=== PATIENT | male | born 1935 | race Caucasian/White ===

== ENCOUNTER 2016-05-09 10:32 | Inpatient (IN) | payer MEDICARE, BC ==
[~2016-05-09 10:32] MED LIST: HUMAN PROTHROMBIN COMPLX 500 UNIT/16 ML VIAL IV ONE
[2016-05-09] MEDS: SODIUM CHLORIDE 0.9% 1,000 ML IV SCH ×2 (11:58→21:01)
[2016-05-09 12:14] LABS: Anisocytosis Slight; Basophils % (A) 0 %; CH 30.5; CHCM 32.8; Eosinophils # (A) 0.1 k/uL (0-0.7); Eosinophils % (A) 1 %; HDW 3.02; Luc % (Auto) 2; Lymphocytes # (A) 1.8 k/uL (1.0-4.8); Lymphocytes % (A) 16 %; MCV 93.9 fL (80.0-100.0); Mean Platelet Volume 6.9; Monocytes # (A) 0.5 k/uL (0-1.0); Monocytes % (A) 5 %; Neutrophils # (A) 8.2 k/uL (1.3-7.7); Neutrophils % (A) 76 %; RBC 2.06 m/uL (4.30-5.90); RDW 16.7 % (11.5-15.5); WBC 10.9 k/uL (3.8-10.6); WBC (Perox) 11.08
[2016-05-09 12:19] LABS: HGB 6.2 gm/dL (13.0-17.5)
[2016-05-09 12:20] LABS: HCT 19.4 % (39.0-53.0)
[2016-05-09] MEDS ORDERED: ACETAMINOPHEN TAB 325 MG TAB PO PRN (12:56)
[2016-05-09] MEDS ORDERED: NITROGLYCERIN SL TABS 0.4 MG TAB SUBLINGUAL PRN (12:56)
[2016-05-09] MEDS ORDERED: MORPHINE SULFATE 2 MG/ML SYRINGE IVP PRN (12:56)
--- NOTE | 2016-05-09 12:56 | ED ---
GI Bleed HPI - General Chief complaint: GI Bleed Stated complaint: WEAKNESS Time Seen by Provider: 05/09/16 10:36 Source: patient Mode of arrival: EMS Limitations: no limitations - History of Present Illness Initial comments: 81 years old gentleman was transferred to us from [facility] patient went there complaining about diarrhea for a few days and they also noticed some blood in the stool ER doc call me from [facility] stating that his hemoglobin is quite low 4.3 creatinine is 1.6 and he is on Coumadin for atrial fibrillation and his troponin is elevated so is the INR ( rectal exam or occult blood was positive. The patient himself denies any headaches no chest pain or shortness of breath no abdominal pain no sinus symptoms of TIA or CVA - Related Data Home Medications Medication Instructions Recorded Confirmed Aspirin [Adult Low Dose Aspirin EC] 81 mg PO DAILY 05/09/16 05/09/16 Ergocalciferol (Vitamin D2) 50,000 unit PO [place] 05/09/16 05/09/16 [Vitamin D2] Ferrous Sulfate [Feosol] 325 mg PO DAILY 05/09/16 05/09/16 Furosemide [Lasix] 40 mg PO DAILY 05/09/16 05/09/16 Insulin Detemir [Levemir Flextouch] 30 units SQ BID 05/09/16 05/09/16 Losartan [Cozaar] 50 mg PO DAILY 05/09/16 05/09/16 Multivitamin [Men's Multi-Vitamin] 1 tab PO DAILY 05/09/16 05/09/16 Potassium Chloride [Klor-Con 20] 20 meq PO DAILY 05/09/16 05/09/16 Potassium Gluconate 595 mg PO DAILY 05/09/16 05/09/16 Pravastatin Sodium [Pravachol] 40 mg PO HS 05/09/16 05/09/16 Warfarin [Coumadin] 5 mg PO DAILY 05/09/16 05/09/16 amLODIPine [Norvasc] 10 mg PO DAILY 05/09/16 05/09/16 sitaGLIPtin [Januvia] 50 mg PO DAILY 05/09/16 05/09/16 Allergies Allergy/AdvReac Type Severity Reaction Status Date / Time No Known Allergies Allergy Verified 05/09/16 12:16 Review of Systems ROS Statement: Those systems with pertinent positive or pertinent negative responses have been documented in the HPI. ROS Other: All systems not noted in ROS Statement are negative. Past Medical History Past Medical History: Diabetes Mellitus, Hyperlipidemia, Hypertension History of Any Multi-Drug Resistant Organisms: None Reported Past Surgical History: No Surgical Hx Reported Past Psychological History: No Psychological Hx Reported Smoking Status: Former smoker Past Alcohol Use History: None Reported Past Drug Use History: None Reported General Exam - General Exam Comments Initial Comments: General: The patient is awake and alert, in no distress, and does not appear acutely ill. ACS is 15 Skin: Skin is warm and dry and no rashes or lesions are noted. Eye: Pupils are equal, round and reactive to light, extra-ocular movements are intact; there is normal conjunctiva bilaterally. Ears, nose, mouth and throat: There are moist mucous membranes and no oral lesions. Neck: The neck is supple, there is no tenderness or JVD. Cardiovascular: There is a regular rate and rhythm. No murmur, rub or gallop is appreciated. Respiratory: To auscultation bilateral, no wheezing no rhonchi no distress respiratory dickerson noticed Gastrointestinal: Soft, non-distended, non-tender abdomen without masses or organomegaly noted. There is no rebound or guarding present. Bowel sounds are unremarkable. Back: There is no tenderness to palpation in the midline. There is no obvious deformity. Musculoskeletal: Normal ROM, no tenderness, There is no pedal edema. There is no calf tenderness or swelling. No cords were appreciated. Neurological: CN II-XII intact, Cranial nerves III through XII are intact. There are no obvious motor or sensory deficits. Coordination appears grossly intact. Speech is normal. Psychiatric: Cooperative, appropriate mood & affect, normal judgment. Limitations: no limitations Course Vital Signs 05/09/16 05/09/16 10:44 12:35 Temperature 99.3 F Pulse Rate 73 64 Respiratory 18 16 Rate Blood Pressure 141/66 138/72 O2 Sat by Pulse 98 97 Oximetry EKG in the ER was sinus rhythm with a first-degree AV block ventricular rate is 67 VT interval is 282 QRS duration is 94 QT/QTc is 400/422 review of this EKG did not show any atrial fibrillation the patient has a history of atrial fibrillation and no ST elevation or ST depression noticed either - Reevaluation(s) Reevaluation #1: 05/09/16 12:53 Labs were made reviewed his urinalysis is negative INR is 5.6 troponin I is supple and 120 creatinine is 1.6 hemoglobin is 5.[address] was normal unfortunately chest x-ray has not been uploaded yet and I didn't see the report with the paperwork and my have discussed that with the Dr. Bill white, hospitalist environmental consultant today he recommended that we give patient is sent from 35 units per kilogram discussed with the pharmacist environmental consultant and now she's can affix a 3500 units does of present trauma to reverse the INR Medical Decision Making - Lab Data Result diagrams: 05/09/16 12:03 Lab Results 05/09/16 Range/Units 12:03 WBC 10.9 H (3.8-10.6) k/uL RBC 2.06 L (4.30-5.90) m/uL Hgb 6.2 L* (13.0-17.5) gm/dL Hct 19.4 L* (39.0-53.0) % MCV 93.9 (80.0-100.0) fL MCH 30.0 (25.0-35.0) pg MCHC 32.0 (31.0-37.0) g/dL RDW 16.7 H (11.5-15.5) % Plt Count 266 (150-450) k/uL Neutrophils % 76 % Lymphocytes % 16 % Monocytes % 5 % Eosinophils % 1 % Basophils % 0 % Neutrophils # 8.2 H (1.3-7.7) k/uL Lymphocytes # 1.8 (1.0-4.8) k/uL Monocytes # 0.5 (0-1.0) k/uL Eosinophils # 0.1 (0-0.7) k/uL Basophils # 0.0 (0-0.2) k/uL Anisocytosis Slight Disposition Clinical Impression: GI bleed, Elevated INR, Elevated troponin Disposition: ADMITTED IP TO THIS HOSP Condition: Good
[2016-05-09] MEDS ORDERED: HUMAN PROTHROMBIN COMPLX IV ONE (13:00)
[2016-05-09] MEDS ORDERED: PHYTONADIONE 10 MG in SODIUM CHLORIDE 0.9% 50 ML IVPB STA (13:01)
[2016-05-09] MEDS ORDERED: ERGOCALCIFEROL 50,000 UNIT CAP PO SCH (13:15)
[2016-05-09 13:49] LABS: Troponin I 0.125 ng/mL (0.000-0.034)
[2016-05-09 14:46] LABS: Glucose,Whole Blood 230 mg/dL (75-99)
[2016-05-09] MEDS ORDERED: INSULIN REGULAR 100 UNIT/ML VIAL SQ ONE (15:01)
[2016-05-09] MEDS ORDERED: INSULIN LISPRO (humaLOG) 300 UNIT/3 ML VIAL SQ ONE (15:06)
[2016-05-09 16:35] VITALS: BMI 33.1
[2016-05-09] MEDS ORDERED: NALOXONE 0.4 MG/ML 1 ML VIAL IV PRN (16:50)
[2016-05-09 16:58] LABS: Glucose,Whole Blood 245 mg/dL (75-99)
[2016-05-09] MEDS: INSULIN LISPRO (humaLOG) 300 UNIT/3 ML VIAL SQ SCH ×2 (17:29→21:00)
[2016-05-09 18:42] LABS: Anisocytosis Slight; Basophils # (A) 0.1 k/uL (0-0.2); Basophils % (A) 1 %; CH 30.3; CHCM 33.1; Eosinophils # (A) 0.1 k/uL (0-0.7); Eosinophils % (A) 1 %; HCT 20.6 % (39.0-53.0); HDW 3.13; Luc # (Auto) 0.18; Luc % (Auto) 2; Lymphocytes # (A) 1.4 k/uL (1.0-4.8); Lymphocytes % (A) 14 %; MCH 29.9 pg (25.0-35.0); MCHC 32.4 g/dL (31.0-37.0); MCV 92.5 fL (80.0-100.0); Mean Platelet Volume 7.7; Monocytes # (A) 0.7 k/uL (0-1.0); Monocytes % (A) 7 %; Neutrophils # (A) 7.7 k/uL (1.3-7.7); Neutrophils % (A) 76 %; RBC 2.23 m/uL (4.30-5.90); RDW 17.5 % (11.5-15.5); WBC 10.1 k/uL (3.8-10.6); WBC (Perox) 10.42
[2016-05-09 18:46] LABS: HGB 6.7 gm/dL (13.0-17.5)
[2016-05-09 19:15] LABS: Creatine Kinase MB 0.9 ng/mL (0.0-2.4)
[2016-05-09 19:23] LABS: Troponin I 0.114 ng/mL (0.000-0.034)
[2016-05-09 20:27] LABS: Glucose,Whole Blood 151 mg/dL (75-99)
[2016-05-09] MEDS ORDERED: METOPROLOL TARTRATE 25 MG TAB PO SCH (21:00)
[2016-05-09] MEDS: INSULIN DETEMIR 100 UNIT/ML 10 ML VIAL SQ SCH (21:00)
[2016-05-09] MEDS: PRAVASTATIN SODIUM 40 MG TAB PO SCH (21:01)
[2016-05-09] MEDS: PANTOPRAZOLE 40 MG/10 ML VIAL IV SCH (21:01)
[2016-05-10 00:50] LABS: Anisocytosis Slight; Basophils % (A) 0 %; CH 30.2; CHCM 33.2; Eosinophils # (A) 0.1 k/uL (0-0.7); Eosinophils % (A) 1 %; HDW 3.22; Luc # (Auto) 0.15; Luc % (Auto) 2; Lymphocytes # (A) 1.4 k/uL (1.0-4.8); Lymphocytes % (A) 14 %; MCH 29.9 pg (25.0-35.0); MCHC 32.5 g/dL (31.0-37.0); MCV 91.7 fL (80.0-100.0); Mean Platelet Volume 6.9; Monocytes # (A) 0.6 k/uL (0-1.0); Monocytes % (A) 6 %; Neutrophils # (A) 7.7 k/uL (1.3-7.7); Neutrophils % (A) 77 %; RBC 2.02 m/uL (4.30-5.90); RDW 17.8 % (11.5-15.5); WBC 10.1 k/uL (3.8-10.6); WBC (Perox) 10.67
[2016-05-10 01:05] LABS: HCT 18.5 % (39.0-53.0)
[2016-05-10 01:06] LABS: HGB 6.1 gm/dL (13.0-17.5)
[2016-05-10] MEDS ORDERED: PHYTONADIONE 10 MG in SODIUM CHLORIDE 0.9% 50 ML IVPB STA (01:11)
[2016-05-10 01:46] LABS: INR 1.2 (<1.1); Prothrombin Time 12.3 sec (9.0-12.0)
[2016-05-10 03:55] LABS: Calcium 7.9 mg/dL (8.4-10.2); Magnesium 2.2 mg/dL (1.6-2.3); Phosphorous 2.7 mg/dL (2.5-4.5); Potassium 4.4 mmol/L (3.5-5.1)
[2016-05-10 07:17] LABS: Glucose,Whole Blood 134 mg/dL (75-99)
[2016-05-10] MEDS: INSULIN LISPRO (humaLOG) 300 UNIT/3 ML VIAL SQ SCH ×4 (08:37→21:23)
[2016-05-10] MEDS: PANTOPRAZOLE 40 MG/10 ML VIAL IV SCH ×2 (08:38→21:28)
[2016-05-10] MEDS: FERROUS SULFATE 325 MG TAB PO SCH (08:39)
[2016-05-10] MEDS: POTASSIUM CHLORIDE ER 20 MEQ TAB.ER PO SCH (08:40)
[2016-05-10] MEDS: INSULIN DETEMIR 100 UNIT/ML 10 ML VIAL SQ SCH ×2 (08:53→21:27)
[2016-05-10] MEDS: SODIUM CHLORIDE 0.9% 1,000 ML IV SCH (08:54)
[2016-05-10] MEDS ORDERED: FUROSEMIDE 40 MG TAB PO SCH (09:00)
[2016-05-10] MEDS ORDERED: amLODIPine 10 MG TAB PO SCH (09:00)
[2016-05-10] MEDS ORDERED: LINAGLIPTIN 5 MG TABLET PO SCH (09:00)
[2016-05-10] MEDS ORDERED: LOSARTAN 50 MG TAB PO SCH (09:00)
[2016-05-10 09:59] LABS: INR 1.1 (<1.1); Prothrombin Time 11.5 sec (9.0-12.0)
[2016-05-10 10:15] LABS: Anisocytosis Slight; CH 29.8; CHCM 32.7; HCT 24.7 % (39.0-53.0); MCH 30.2 pg (25.0-35.0); MCHC 32.7 g/dL (31.0-37.0); MCV 92.2 fL (80.0-100.0); Mean Platelet Volume 7.3; RBC 2.68 m/uL (4.30-5.90); RDW 17.2 % (11.5-15.5); WBC 8.2 k/uL (3.8-10.6)
[2016-05-10 10:29] LABS: HGB 8.1 gm/dL (13.0-17.5)
--- NOTE | 2016-05-10 11:11 | XR ---
EXAMINATION TYPE: XR chest 1V portable DATE OF EXAM: 05/10/2016 11:00 AM COMPARISON: 05-24 HISTORY: Fluid overload TECHNIQUE: Single frontal view of the chest is obtained. FINDINGS: There is no focal air space opacity, pleural effusion, or pneumothorax seen. The cardiac silhouette size is within normal limits. The osseous structures are intact. Central interstitial pa ttern. Atherosclerotic change aorta. Arthropathy of the shoulders. IMPRESSION: 1. Correlate for mild central venous congestion.
[2016-05-10 11:25] LABS: Hemoglobin A1C 5.9 % (4.2-6.1)
[2016-05-10 12:06] LABS: Glucose,Whole Blood 184 mg/dL (75-99)
--- NOTE | 2016-05-10 12:40 | P.CNPUL ---
History of Present Illness Consult date: 05/10/16 Chief complaint: GIB History of present illness: 81-year-old male patient with known history of coronary artery disease and paroxysmal atrial fibrillation has been maintained on warfarin on a long-term basis. The patient also has remote history of GI bleeding. The patient was transferred from [facility] because of GI bleed and Coumadin toxicity. Apparently presented initially to [facility] complaining of generalized weakness, loose diarrhea-like bowel activity and at that point he was found to have a hemoglobin of 5.3 and an INR of 5.6. The patient was given a unit of packed RBC and following that he got moved to our hospital where he received additional 3 units of packed RBC and currently his hemoglobin is up to 8.1. He remains hemodynamically stable. He was given vitamin K a total of 10 mg and he was also given Kcentra in the emergency department. His most recent INR is down to 1.1. Note that the patient was having dark tarry and he denied having any abdominal pain, no nausea no vomiting. The patient has been having these symptoms for almost 2 weeks and was suspected slow ongoing GI bleeding. We have witnessed 1 episode here in the intensive care unit. He has no chest pain. No change in mental status. No other complaints otherwise. His current cardiac rhythm is sinus bradycardia. He is also receiving fluids in the form of normal saline at the rate of 100 mL an hour and currently up on the order of the hospitalist the fluid infusion rate was dropped. Review of Systems For review of system was done and the positive findings are almost above in history of present illness Past Medical History Past Medical History: Atrial Fibrillation, Coronary Artery Disease (CAD), Diabetes Mellitus, GI Bleed, Hyperlipidemia, Hypertension, Myocardial Infarction (ND) Additional Past Medical History / Comment(s): Iron deficiency anemia, DM, HTN, hyperlipidemia,colonic polyps Last Myocardial Infarction Date:: 02/07/2001 History of Any Multi-Drug Resistant Organisms: None Reported Past Surgical History: No Surgical Hx Reported Additional Past Surgical History / Comment(s): Colon polyp removal (2014) Past Anesthesia/Blood Transfusion Reactions: No Reported Reaction Past Psychological History: No Psychological Hx Reported Smoking Status: Former smoker Past Alcohol Use History: Heavy Additional Past Alcohol Use History / Comment(s): Quit drinking 20 years ago. Past Drug Use History: None Reported - Past Family History Mother Family Medical History: Cancer, Myocardial Infarction (ND) Father Family Medical History: Cancer Medications and Allergies Home Medications Medication Instructions Recorded Confirmed Type Aspirin [Adult Low Dose Aspirin EC] 81 mg PO DAILY 05/09/16 05/09/16 History Ergocalciferol (Vitamin D2) 50,000 unit PO [place] 05/09/16 05/09/16 History [Vitamin D2] Ferrous Sulfate [Feosol] 325 mg PO DAILY 05/09/16 05/09/16 History Furosemide [Lasix] 40 mg PO DAILY 05/09/16 05/09/16 History Insulin Detemir [Levemir Flextouch] 30 units SQ BID 05/09/16 05/09/16 History Losartan [Cozaar] 50 mg PO DAILY 05/09/16 05/09/16 History Multivitamin [Men's Multi-Vitamin] 1 tab PO DAILY 05/09/16 05/09/16 History Potassium Chloride [Klor-Con 20] 20 meq PO DAILY 05/09/16 05/09/16 History Potassium Gluconate 595 mg PO DAILY 05/09/16 05/09/16 History Pravastatin Sodium [Pravachol] 40 mg PO HS 05/09/16 05/09/16 History Warfarin [Coumadin] 5 mg PO DAILY 05/09/16 05/09/16 History amLODIPine [Norvasc] 10 mg PO DAILY 05/09/16 05/09/16 History sitaGLIPtin [Januvia] 50 mg PO DAILY 05/09/16 05/09/16 History Allergies Allergy/AdvReac Type Severity Reaction Status Date / Time No Known Allergies Allergy Verified 05/09/16 12:16 Physical Exam Vitals: Vital Signs Temp Pulse Pulse Resp BP Pulse Ox 05/10/16 10:00 54 L 20 139/65 98 05/10/16 09:00 63 24 116/57 98 05/10/16 08:00 97.6 F 50 L 22 123/46 98 05/10/16 06:00 60 24 115/56 100 05/10/16 05:41 98.4 F 61 14 115/56 99 05/10/16 05:12 98.3 F 59 L 14 115/56 98 05/10/16 05:04 98.4 F 54 L 16 128/62 96 05/10/16 05:02 98 F 57 L 14 128/62 96 05/10/16 05:00 50 L 16 128/62 99 05/10/16 04:00 98.2 F 54 L 17 106/43 98 05/10/16 03:00 57 L 20 122/56 98 05/10/16 02:39 97.6 F 61 14 122/56 99 05/10/16 02:15 97.4 F L 67 14 122/56 99 05/10/16 02:07 97.9 F 62 14 110/49 99 05/10/16 02:00 61 14 110/49 99 05/10/16 01:00 57 L 15 110/43 97 05/10/16 00:05 64 10 L 109/41 99 05/10/16 00:00 98.3 F 64 20 109/41 99 05/09/16 23:00 57 L 13 115/54 98 05/09/16 22:00 70 22 154/63 97 05/09/16 21:00 81 20 131/54 94 L 05/09/16 20:00 98.3 F 70 19 139/56 95 05/09/16 19:00 74 19 121/75 96 05/09/16 18:00 94 20 119/63 95 05/09/16 17:15 98.7 F 71 19 119/62 98 05/09/16 17:00 98.5 F 68 19 134/51 96 05/09/16 15:11 98.7 F 68 18 140/61 05/09/16 14:44 99.2 F 84 18 140/65 97 05/09/16 14:34 98 F 69 18 140/65 100 05/09/16 13:24 74 18 127/71 97 Intake and Output 05/09/16 05/10/16 05/10/16 22:59 06:59 14:59 Intake Total 1370 1210 610 Output Total 900 1800 200 Balance 470 -590 410 Intake: Intake, IV Titration 700 900 300 Amount Phytonadione 10 mg In 100 100 Sodium Chloride 0.9% 50 ml @ 100 mls/hr IVPB ONCE STA Rx#:[id number] Phytonadione 10 mg In 100 Sodium Chloride 0.9% 50 ml @ 100 mls/hr IVPB ONCE STA Rx#:[id number] Sodium Chloride 0.9% 1, 600 700 300 000 ml @ 100 mls/hr IV . Q10H KARINA Rx#:[id number] Oral 360 Blood Product 310 310 310 Rc As-1 Unit 0 310 [id number] Rc As-1 Unit 310 [id number] Rc Pheresis 2 As3 Unit 310 [id number] Output: Urine 900 1800 200 Other: Voiding Method Urinal Urinal # Voids 1 # Bowel Movements 1 Weight 98.88 kg 103.5 kg The patient appeared well nourished and normally developed. Vital signs as documented. Head exam is unremarkable. No scleral icterus or corneal arcus noted. Neck is without jugular venous distension, thyromegaly, or carotid bruits. Carotid upstrokes are brisk bilaterally. Lungs are clear to auscultation and percussion. Cardiac exam reveals the PMI to be normally sized and situated. Rhythm is regular. First and second heart sounds normal. No murmurs, rubs or gallops. Abdominal exam reveals normal bowel sounds, no masses , no organomegaly and no aortic enlargement. Extremities are nonedematous and both femoral and pedal pulses are normal. Results - Laboratory Findings CBC and BMP: 05/10/16 09:39 05/10/16 03:31 PT/INR, D-dimer PT 11.5 sec (9.0-12.0) 05/10/16 09:39 INR 1.1 (<1.1) 05/10/16 09:39 Abnormal lab findings: Abnormal Labs 05/09/16 05/09/16 05/09/16 13:05 14:43 16:56 RBC Hgb Hct RDW PT Chloride BUN Creatinine Glucose POC Glucose (mg/dL) 230 H 245 H Calcium Troponin I HDL Cholesterol Crossmatch See Detail 05/09/16 05/09/16 05/09/16 18:29 18:29 20:26 RBC 2.23 L Hgb 6.7 L* Hct 20.6 L RDW 17.5 H PT Chloride BUN Creatinine Glucose POC Glucose (mg/dL) 151 H Calcium Troponin I 0.114 H* HDL Cholesterol Crossmatch 05/09/16 05/09/16 05/10/16 23:43 23:43 03:31 RBC 2.02 L Hgb 6.1 L* Hct 18.5 L* RDW 17.8 H PT 12.3 H Chloride 109 H BUN 31 H Creatinine 1.60 H Glucose 149 H POC Glucose (mg/dL) Calcium 7.9 L Troponin I HDL Cholesterol 26 L Crossmatch 05/10/16 05/10/16 05/10/16 03:31 07:16 09:39 RBC 2.68 L Hgb 8.1 L D Hct 24.7 L RDW 17.2 H PT Chloride BUN Creatinine Glucose POC Glucose (mg/dL) 134 H Calcium Troponin I 0.114 H* HDL Cholesterol Crossmatch 05/10/16 12:05 RBC Hgb Hct RDW PT Chloride BUN Creatinine Glucose POC Glucose (mg/dL) 184 H Calcium Troponin I HDL Cholesterol Crossmatch - Diagnostic Findings Chest x-ray: image reviewed Assessment and Plan Plan: Assessment 1 upper GI bleeding with massive drop in hemoglobin down to 5.3. Rule out upper GI pathology/peptic ulcer disease complicated by a mild degree of coagulopathy with the patient's PT/INR being toxic at a time of admission. Patient is status post transfusion with 4 units of packed RBC and currently is hemodynamically stable 2 anemia secondary to above 3 obesity 4 coronary artery disease 5 paroxysmal defibrillation 6 diabetes mellitus 7 renal failure, acute versus chronic 8 colonic polyps and last colonoscopy was done approximately 8 years ago. No previous EGD performed. 9 hypertension 10 sinus bradycardia Plan The patient can be moved up to telemetry unit for further monitoring. Allow clear liquids. Coordinate an EGD with gastroenterology. No anticoagulation for now. Monitor hemoglobin. The patient can be moved out of the intensive care unit as long as the patient is hemodynamically stable at this point.
--- NOTE | 2016-05-10 12:47 | ECHOF ---
Referral Reason:afib MEASUREMENTS -------- HEIGHT: 172.7 cm WEIGHT: 103.4 kg BP: 139/65 RVIDd: 4.7 cm (< 3.3) IVSd: 1.2 cm (0.6 - 1.1) LVIDd: 4.6 cm (3.9 - 5.3) LVPWd: 1.3 cm (0.6 - 1.1) IVSs: 1.4 cm LVIDs: 4.3 cm LVPWs: 1.6 cm LA Diam: 3.4 cm (2.7 - 3.8) Ao Diam: 3.6 cm (2.0 - 3.7) AV Cusp: 2.1 cm (1.5 - 2.6) LA Diam: 4.4 cm (2.7 - 3.8) MV EXCURSION: 21.258 mm (> 18.000) MV EF SLOPE: 122 mm/s (70 - 150) EPSS: 0.3 cm MV E Kavon: 0.79 m/s MV DecT: 187 ms MV A Kavon: 1.13 m/s MV E/A Ratio: 0.70 RAP: 5.00 mmHg RVSP: 38.98 mmHg FINDINGS -------- Sinus rhythm. This was a technically adequate study. There is mild concentric left ventricular hypertrophy. Overall left ventricular systolic function is low-normal with, an EF between 50 - 55 %. The diastolic filling pattern is normal for the age of the patient 8.48. The right ventricle is severely enlarged. The left atrial size is normal. The right atrial size is normal. There is mild aortic valve sclerosis. There is no evidence of aortic regurgitation. Mild mitral annular calcification present. Mild mitral regurgitation is present. Mild tricuspid regurgitation present. There is mild pulmonary hypertension. The right ventricular systolic pressure, as measured by Doppler, is 38.98mmHg. There is no pulmonic regurgitation present. The aortic root size is normal. There is no pericardial effusion. CONCLUSIONS -------- 1. There is mild concentric left ventricular hypertrophy. 2. The right ventricular systolic pressure, as measured by Doppler, is 38.98mmHg. 3. Overall left ventricular systolic function is low-normal with, an EF between 50 - 55 %. 4. The diastolic filling pattern is normal for the age of the patient 8.48 5. The right ventricle is severely enlarged. 6. There is mild aortic valve sclerosis. 7. Mild mitral annular calcification present. 8. Mild mitral regurgitation is present. 9. Mild tricuspid regurgitation present. 10. There is mild pulmonary hypertension. TRACTOR DRIVER TEAMSTER: Tammy Mehta RDCS
[2016-05-10] MEDS: MULTIVITAMINS, THERA 1 EACH TAB PO SCH (13:49)
--- NOTE | 2016-05-10 15:56 | CONS ---
DATE OF CONSULTATION: Mr. Cole is an 81-year-old male who was transferred from [facility] after being seen in the emergency room with progressive fatigue and dyspnea and was found to have severe anemia with a hemoglobin down to the 4 range. He has noted to have dark stool over the last 4 weeks and because of that, came into the emergency room and subsequently transferred. He has received a total of 4 units of packed red blood cells so far as well as vitamin K. He has a history of paroxysmal atrial fibrillation. There is a questionable history of myocardial infarction many years ago. He has seen Dr. Patel in the past but not recently. He has been feeling progressive dyspnea as noted. He has no chest discomfort. He has no palpitation. No syncope. He has no PND. No orthopnea. He has some peripheral edema. His coronary risk factors are remarkable for hypertension, hyperlipidemia, and diabetes mellitus, and paroxysmal atrial fibrillation. His medications at home included: 1. Iron. 2. Insulin. 3. Pravastatin 40 mg daily. 4. Coumadin. 5. Amlodipine 10 mg daily. 6. Januvia 50 mg daily. 7. Aspirin. 8. Vitamin D. 9. Lasix 40 mg daily. 10. Cozaar 50 mg daily. 11. Potassium. 12. Multivitamin. REVIEW OF SYSTEMS: RESPIRATORY SYSTEM: He has dyspnea on exertion. No recent wheezing, cough. GI: He has a prior history of GI bleeding. He had a dark stool as noted. He has underwent colonoscopy not too long ago according to him. system: No dysuria or hematuria. Nervous system: Questionable history of stroke, although the patient is somewhat vague about the findings. SOCIAL HISTORY: He has stopped smoking over 20 years ago. He used to smoked up to 5 packs a day and he is used to drink alcohol. He stopped that at the same time, he is . PHYSICAL EXAMINATION: He is an 81-year-old male, alert, oriented, in no apparent distress. Blood pressure 123/50 with a heart in the 60s. HEAD: Normocephalic. EYES: Sclerae anicteric. NECK: Good carotid upstroke with transmitted murmur. LUNGS: Clear to auscultation. HEART: Regular rate and rhythm. S1, S2, no S3, with systolic murmur heard at the base. No diastolic murmur. No rub. ABDOMEN: Soft, nontender, positive bowel sounds. No organomegaly. EXTREMITIES: +1 edema bilaterally. Lab data revealed initial hemoglobin after transfusion of 2 units on arrival was 6.2. His hemoglobin this morning is 6.1. His BUN and creatinine 31 and 1.6. Troponin 0.125, 0.114 and 0.114. Potassium 4.4, white blood cell of 10.1. His INR is down to 1.2 after receiving the vitamin K. His EKG revealed a sinus bradycardia, first-degree AV block. Otherwise no acute changes. IMPRESSION: 1. Severe anemia related gastrointestinal bleeding in a patient with who was anticoagulated and had coagulopathy. 2. Paroxysmal atrial fibrillation. The patient in sinus mechanism at this time. 3. History of hypertension. 4. History of hyperlipidemia. 5. Diabetes mellitus. 6. Renal failure of unknown duration. 7. Questionable history of coronary artery disease. RECOMMENDATION: From the cardiac standpoint, I will stop the losartan at this time because of his renal function. I will obtain echocardiogram with Doppler. Continue the rest of his medical regimen. Depending on his progress, further recommendation will be made. Thank you for this consult. We will follow with you.
[2016-05-10 16:33] LABS: Glucose,Whole Blood 79 mg/dL (75-99)
[2016-05-10 17:57] LABS: Anisocytosis Slight; Basophils % (A) 1 %; CHCM 33.1; Eosinophils # (A) 0.3 k/uL (0-0.7); Eosinophils % (A) 3 %; HCT 27.8 % (39.0-53.0); Luc # (Auto) 0.26; Luc % (Auto) 3; Lymphocytes # (A) 1.9 k/uL (1.0-4.8); Lymphocytes % (A) 21 %; MCH 29.7 pg (25.0-35.0); MCHC 32.5 g/dL (31.0-37.0); MCV 91.5 fL (80.0-100.0); Mean Platelet Volume 7.1; Monocytes # (A) 0.6 k/uL (0-1.0); Monocytes % (A) 7 %; Neutrophils # (A) 5.7 k/uL (1.3-7.7); Neutrophils % (A) 65 %; RBC 3.04 m/uL (4.30-5.90); RDW 17.7 % (11.5-15.5); WBC 8.8 k/uL (3.8-10.6); WBC (Perox) 9.28
[2016-05-10] MEDS ORDERED: FUROSEMIDE 10 MG/ML 4 ML VIAL IV STA (20:02)
[2016-05-10 21:09] LABS: Glucose,Whole Blood 89 mg/dL (75-99)
[2016-05-10] MEDS: PRAVASTATIN SODIUM 40 MG TAB PO SCH (21:28)
[2016-05-11 00:37] LABS: Anisocytosis Slight; Basophils % (A) 0 %; CHCM 33.2; Eosinophils # (A) 0.3 k/uL (0-0.7); Eosinophils % (A) 4 %; HCT 25.3 % (39.0-53.0); HDW 3.24; HGB 8.4 gm/dL (13.0-17.5); Luc # (Auto) 0.19; Luc % (Auto) 3; Lymphocytes # (A) 1.5 k/uL (1.0-4.8); Lymphocytes % (A) 21 %; MCH 30.4 pg (25.0-35.0); MCHC 33.2 g/dL (31.0-37.0); MCV 91.4 fL (80.0-100.0); Mean Platelet Volume 6.9; Monocytes # (A) 0.5 k/uL (0-1.0); Monocytes % (A) 7 %; Neutrophils # (A) 4.8 k/uL (1.3-7.7); Neutrophils % (A) 66 %; RBC 2.76 m/uL (4.30-5.90); RDW 17.6 % (11.5-15.5); WBC 7.3 k/uL (3.8-10.6); WBC (Perox) 7.51
--- NOTE | 2016-05-11 03:59 | P.CONS ---
History of Present Illness - Reason for Consult Consult date: 05/10/16 GI bleeding and anemia - History of Present Illness The patient is an 81-year old male who was transferred from [facility] because of profound anemia and coagulopathy. He presented with diarrhea of around two weeks duration and reported dark stools and was found to have a Hb of 5.3. The patient is om coumadin for atrial fibrillation and had elevated INR of around 6.0. The patient has received blood and Vit K since arrival and continues to have dark, diarrheic movements. We are asked to see him regarding his GI bleeding. Review of Systems Constitutional: No fever, chills or unintentional weight loss Neurologic: No headaches, double vision or any sensory or motor changes Cardiopulmonary: No chest pains, SOB or palpitations. Has history of CAHD, S/P [place] and AFib Gastrointestinal: See PI above Endocrine: History of DM, no thyroid disease Genitourinary: No hematuria, dysuria or frequency Muskuloskeletal: No joint swelling or pain Skin: No rashes Psychiatric: No anxiety or depression Past Medical History Past Medical History: Atrial Fibrillation, Coronary Artery Disease (CAD), Diabetes Mellitus, GI Bleed, Hyperlipidemia, Hypertension, Myocardial Infarction ([place]) Additional Past Medical History / Comment(s): Iron deficiency anemia, DM, HTN, hyperlipidemia,colonic polyps Last Myocardial Infarction Date:: 02/07/2001 History of Any Multi-Drug Resistant Organisms: None Reported Past Surgical History: No Surgical Hx Reported Additional Past Surgical History / Comment(s): Colon polyp removal (2014) Past Anesthesia/Blood Transfusion Reactions: No Reported Reaction Past Psychological History: No Psychological Hx Reported Smoking Status: Former smoker Past Alcohol Use History: Heavy Additional Past Alcohol Use History / Comment(s): Quit drinking 20 years ago. Past Drug Use History: None Reported - Past Family History Mother Family Medical History: Cancer, Myocardial Infarction ([place]) Father Family Medical History: Cancer Medications and Allergies Home Medications Medication Instructions Recorded Confirmed Type Aspirin [Adult Low Dose Aspirin EC] 81 mg PO DAILY 05/09/16 05/09/16 History Ergocalciferol (Vitamin D2) 50,000 unit PO [place] 05/09/16 05/09/16 History [Vitamin D2] Ferrous Sulfate [Feosol] 325 mg PO DAILY 05/09/16 05/09/16 History Furosemide [Lasix] 40 mg PO DAILY 05/09/16 05/09/16 History Insulin Detemir [Levemir Flextouch] 30 units SQ BID 05/09/16 05/09/16 History Losartan [Cozaar] 50 mg PO DAILY 05/09/16 05/09/16 History Multivitamin [Men's Multi-Vitamin] 1 tab PO DAILY 05/09/16 05/09/16 History Potassium Chloride [Klor-Con 20] 20 meq PO DAILY 05/09/16 05/09/16 History Potassium Gluconate 595 mg PO DAILY 05/09/16 05/09/16 History Pravastatin Sodium [Pravachol] 40 mg PO HS 05/09/16 05/09/16 History Warfarin [Coumadin] 5 mg PO DAILY 05/09/16 05/09/16 History amLODIPine [Norvasc] 10 mg PO DAILY 05/09/16 05/09/16 History sitaGLIPtin [Januvia] 50 mg PO DAILY 05/09/16 05/09/16 History Allergies Allergy/AdvReac Type Severity Reaction Status Date / Time No Known Allergies Allergy Verified 05/09/16 12:16 Physical Exam Vitals: Vital Signs Temp Pulse Pulse Pulse Resp BP BP 05/10/16 16:21 63 18 134/59 05/10/16 12:00 97.8 F 62 21 111/55 05/10/16 11:00 59 L 15 136/55 05/10/16 10:00 54 L 20 139/65 05/10/16 09:00 63 24 116/57 05/10/16 08:00 97.6 F 50 L 21 123/46 05/10/16 06:00 60 24 115/56 05/10/16 05:41 98.4 F 61 14 115/56 05/10/16 05:12 98.3 F 59 L 14 115/56 05/10/16 05:04 98.4 F 54 L 16 128/62 05/10/16 05:02 98 F 57 L 14 128/62 05/10/16 05:00 50 L 16 128/62 05/10/16 04:00 98.2 F 54 L 17 106/43 05/10/16 03:00 57 L 20 122/56 05/10/16 02:39 97.6 F 61 14 122/56 05/10/16 02:15 97.4 F L 67 14 122/56 05/10/16 02:07 97.9 F 62 14 110/49 05/10/16 02:00 61 14 110/49 05/10/16 01:00 57 L 15 110/43 05/10/16 00:05 64 10 L 109/41 05/10/16 00:00 98.3 F 64 20 109/41 Pulse Ox 05/10/16 16:21 99 05/10/16 12:00 97 05/10/16 11:00 97 05/10/16 10:00 98 05/10/16 09:00 98 05/10/16 08:00 98 05/10/16 06:00 100 05/10/16 05:41 99 05/10/16 05:12 98 05/10/16 05:04 96 05/10/16 05:02 96 05/10/16 05:00 99 05/10/16 04:00 98 05/10/16 03:00 98 05/10/16 02:39 99 05/10/16 02:15 99 05/10/16 02:07 99 05/10/16 02:00 99 05/10/16 01:00 97 05/10/16 00:05 99 05/10/16 00:00 99 Intake and Output 05/10/16 05/10/16 05/11/16 14:59 22:59 06:59 Intake Total 610 360 Output Total 700 300 Balance -90 60 Intake: Intake, IV Titration 300 Amount Sodium Chloride 0.9% 1, 300 000 ml @ 100 mls/hr IV . Q[facility]H [facility] Rx#:[id number] Oral 360 Blood Product 310 Rc As-1 Unit 310 [id number] Output: Urine 700 300 Other: Voiding Method Urinal # Voids 1 # Bowel Movements 1 General: Appeared stated age, very pleasant in no acute distress Head and neck: Normocephalic and atraumatic, conjunctivae pink and sclerae not icteric, no masses in the neck or tracheal shifts, no thyromegaly Lungs: Clear to auscultation with no dullness to percussion Heart: Regular, no abnormal sounds, gallops or friction rubs Abdomen: Soft, no masses, organomegalies or tenderness, BS present Extremities: No clubbing, cyanosis or edema Neurologic: Alert and oriented X3. Cranial nerves grossly intact with no gross sensory or motor changes Results CBC & Chem 7: 05/11/16 00:18 05/10/16 03:31 Labs: Abnormal Lab Results - Last 24 Hours (Table) 05/09/16 05/09/16 05/09/16 Range/Units 13:05 23:43 23:43 RBC 2.02 L (4.30-5.90) m/uL Hgb 6.1 L* (13.0-17.5) gm/dL Hct 18.5 L* (39.0-53.0) % RDW 17.8 H (11.5-15.5) % PT 12.3 H (9.0-12.0) sec Chloride (98-107) mmol/L BUN (9-20) mg/dL Creatinine (0.66-1.25) mg/dL Glucose (74-99) mg/dL POC Glucose (mg/dL) (75-99) mg/dL Calcium (8.4-10.2) mg/dL Troponin I (0.000-0.034) ng/mL HDL Cholesterol (40-60) mg/dL Crossmatch See Detail 05/10/16 05/10/16 05/10/16 Range/Units 03:31 03:31 07:16 RBC (4.30-5.90) m/uL Hgb (13.0-17.5) gm/dL Hct (39.0-53.0) % RDW (11.5-15.5) % PT (9.0-12.0) sec Chloride 109 H (98-107) mmol/L BUN 31 H (9-20) mg/dL Creatinine 1.60 H (0.66-1.25) mg/dL Glucose 149 H (74-99) mg/dL POC Glucose (mg/dL) 134 H (75-99) mg/dL Calcium 7.9 L (8.4-10.2) mg/dL Troponin I 0.114 H* (0.000-0.034) ng/mL HDL Cholesterol 26 L (40-60) mg/dL Crossmatch 05/10/16 05/10/16 05/10/16 Range/Units 09:39 12:05 17:35 RBC 2.68 L 3.04 L (4.30-5.90) m/uL Hgb 8.1 L D 9.0 L (13.0-17.5) gm/dL Hct 24.7 L 27.8 L (39.0-53.0) % RDW 17.2 H 17.7 H (11.5-15.5) % PT (9.0-12.0) sec Chloride (98-107) mmol/L BUN (9-20) mg/dL Creatinine (0.66-1.25) mg/dL Glucose (74-99) mg/dL POC Glucose (mg/dL) 184 H (75-99) mg/dL Calcium (8.4-10.2) mg/dL Troponin I (0.000-0.034) ng/mL HDL Cholesterol (40-60) mg/dL Crossmatch Assessment and Plan Plan: 81-year old male with gastrointestinal bleeding and anemia, possible secondary to PUD. His coagulopathy is now corrected. Defining the source of bleeding will be helpful especially if the patient needs to be back on anticoagulation for his atrial fibrillation. Agree with PPI. Will plan EGD tomorrow.
[2016-05-11 06:20] LABS: Glucose,Whole Blood 62 mg/dL (75-99)
[2016-05-11] MEDS ORDERED: DEXTROSE 50%-WATER 50 ML SYRINGE IVP ONE (06:21)
--- NOTE | 2016-05-11 06:33 | HP ---
DATE OF ADMISSION: The patient is an 81-year-old gentleman with history of paroxysmal atrial fibrillation, on Coumadin, came in with supratherapeutic INR of 5.6 along with dark stools, has been going on for multiple episodes of dark stools and diarrhea. Patient denied using any antibiotics. Recently, the patient's INR was 5.6 and hemoglobin 5.3. Patient received ( ) units of packed red blood cells. Patient received vitamin K 10 mg. Gastroenterology was consulted. Patient was started on Protonix. The patient was on 100 mL of IV fluids and Lasix was discontinued. It does not appear like patient has any congestive heart failure in the past. REVIEW OF SYSTEMS: CONSTITUTIONAL: No fever, no malaise, no fatigue. HEENT: No recent visual problems or hearing problems. Denied any sore throat. CARDIOVASCULAR: No chest pain, orthopnea, PND, no palpitations, no syncope. PULMONARY: No shortness of breath, no cough, no hemoptysis. GASTROINTESTINAL: As described in HPI. NEUROLOGICAL: No headaches, no weakness, no numbness. HEMATOLOGICAL: Denies any bleeding or petechiae. GENITOURINARY: Denies any burning micturition, frequency, or urgency. MUSCULOSKELETAL/RHEUMATOLOGICAL: Denies any joint pain, swelling, or any muscle pain. ENDOCRINE: Denies any polyuria or polydipsia. The rest of the 14 point review of systems is negative. PAST MEDICAL HISTORY: Significant for atrial fibrillation for which patient is on Coumadin, coronary artery disease, diabetes mellitus, GI bleed in the past as well, hyperlipidemia, hypertension, myocardial infarction, iron deficiency anemia and colonic polyps in the past. Patient had colonoscopies in the past with colonic polyps with removal. SOCIAL HISTORY: Former smoker. ( ) alcoholic. FAMILY HISTORY: Mother had cancer and myocardial infarction. Father had cancer. HOME MEDICATIONS: 1. Aspirin. 2. Ergocalciferol. 3. Ferrous sulfate. 4. Lasix 40 mg oral daily. 5. Insulin, Levemir, ( ) units bedtime. 6. Cozaar 50 mg daily, both of which are discontinued. 7. Multivitamin. 8. Potassium chloride. 9. Pravastatin 40 mg oral at bedtime. 10. Coumadin 5 mg oral daily. 11. Amlodipine 10 mg oral daily. 12. Januvia 50 mg p.o. daily. ALLERGIES: No known drug allergies. PHYSICAL EXAMINATION: VITAL SIGNS: Temperature 97.2, pulse of 62, respiratory rate of 18, blood pressure is 111/55. Patient was hypotensive in the 90s and saturating at 99% on 2L of O2 by nasal cannula. GENERAL: The patient is alert and oriented x3, not in any acute distress. Well developed, well nourished. HEENT: Eye Examination: The patient has conjunctival pallor. No scleral icterus. Pupils are round and equally reacting to light. Normocephalic, atraumatic. No pharyngeal erythema. No thyromegaly. CARDIOVASCULAR: S1 and S2 present. No murmurs, rubs, or gallops. PULMONARY: Chest is clear to auscultation, no wheezing or crackles. ABDOMEN: Soft, nontender, nondistended, normoactive bowel sounds. No palpable organomegaly. MUSCULOSKELETAL: No joint swelling or deformity. EXTREMITIES: No cyanosis, clubbing, or pedal edema. NEUROLOGICAL: Gross neurological examination did not reveal any focal deficits. SKIN: No rashes. LABORATORY DATA: CBC and CMP are abnormal for elevated BUN of 31 secondary to GI bleed and creatinine of 1.6. I do not have his baseline creatinine. Troponins are minimally elevated probably secondary to demand ischemia. Chest x-ray showing pulmonary congestion because of which I initially ordered IV fluids which I discontinued and patient will be given a dose of Lasix. I have echocardiogram results available at this point of time and appears to have some diastolic dysfunction and normal systolic function. ASSESSMENT AND PLAN: 1. Acute upper gastrointestinal bleed. Patient is on Protonix. Gastroenterology was consulted. Anticoagulation will be held and losartan will be held. 2. Renal failure. It is unsure whether patient has acute renal failure or chronic kidney disease as recent creatinine is unavailable. We are unable to give him any IV fluids unfortunately because of pulmonary edema, probably related to his blood transfusion. Patient's kidney functions will be closely monitored. Since he received blood, hopefully kidney function will improve. 3. Congestive heart failure, chronic diastolic dysfunction with mild acute exacerbation. 4. Obesity. 5. Coronary artery disease. 6. Paroxysmal atrial fibrillation for which patient is on Coumadin supratherapeutic INR. 7. Type 2 diabetes mellitus. Discontinue all his oral hypoglycemics. Continue with insulin regimen. 8. Hypertension. 9. Sinus bradycardia. 10. Elevated troponin secondary to demand ischemia. Plan to hold losartan, Gastroenterology consultation. Will give a dose of Lasix because of pulmonary edema on the chest x-ray.
[2016-05-11 06:41] LABS: Anisocytosis Slight; Basophils % (A) 1 %; CH 30.1; CHCM 33.2; Eosinophils # (A) 0.3 k/uL (0-0.7); Eosinophils % (A) 3 %; HCT 26.8 % (39.0-53.0); HDW 3.27; HGB 8.9 gm/dL (13.0-17.5); Luc # (Auto) 0.23; Luc % (Auto) 3; Lymphocytes % (A) 26 %; MCH 30.2 pg (25.0-35.0); MCV 91.5 fL (80.0-100.0); Monocytes # (A) 0.6 k/uL (0-1.0); Monocytes % (A) 7 %; Neutrophils # (A) 4.8 k/uL (1.3-7.7); Neutrophils % (A) 61 %; RBC 2.93 m/uL (4.30-5.90); RDW 17.9 % (11.5-15.5); WBC 7.9 k/uL (3.8-10.6); WBC (Perox) 7.95
[2016-05-11 06:49] LABS: Prothrombin Time 10.5 sec (9.0-12.0)
[2016-05-11 06:50] LABS: Glucose,Whole Blood 109 mg/dL (75-99)
[2016-05-11 06:50] LABS: Glucose,Whole Blood 121 mg/dL (75-99)
[2016-05-11 06:54] LABS: Calcium 8.3 mg/dL (8.4-10.2); Magnesium 2.1 mg/dL (1.6-2.3); Phosphorous 3.4 mg/dL (2.5-4.5)
[2016-05-11] MEDS: INSULIN LISPRO (humaLOG) 300 UNIT/3 ML VIAL SQ SCH ×4 (07:18→21:08)
[2016-05-11] MEDS ORDERED: DEXTROSE 5%-0.9% NACL 1,000 ML IV SCH (09:30)
--- NOTE | 2016-05-11 10:10 | CDI ---
In responding to this query, please exercise your independent professional judgment. The [facility] Coding Staff and Clinical Documentation Specialists appreciate your assistance in clarifying documentation, maintaining compliance with coding guidelines, accurately documenting patients condition and capturing severity of illness. The fact that a question is asked does not imply that any particular answer is desired or expected. Communication forms are a method of clarifying documentation and are not made part of the Legal Health Record. Thank you in advance for your clarification. Last Revision, December 2014 Denis Guerin [address] [place] [address] Documentation Clarification Form Date: 05/11/2016 10:01:00 AM From: Emmanuel Shell, RN, BSN, CDI Admit Date: 05/09/2016 12:56:00 PM Patient Name: Jean Carlos Cole Visit Number: [id number] Dr. Thang Mcclure: A diagnosis of anemia lacks specificity to accurately reflect your patients severity of condition and clarification is needed. Patient history/risk factors: 81 yo male with a history of Afib presents on Coumadin presents with multiple episodes of dark stools. Clinical Indicators: Hemoglobin: 6.2 Hematocrit: 19.4 INR: 5.6 Treatment: 4U PRBC's, serial CBC, Feosol, EGD pending In order to capture the severity of condition, please clarify the type of anemia and etiology if known: Acute blood loss anemia Acute on chronic blood loss anemia Chronic blood loss anemia Iron deficiency anemia Drug induced anemia Nutritional anemia Anemia of chronic kidney disease Unable to determine Other, please specify Please document in your progress notes and discharge summary in order to capture severity of illness and risk of mortality. Include clinical findings that support your diagnosis. FYI: Press F11 to launch patient chart. Place X here if this finding has no clinical significance, is not applicable or if you are not able to provide any additional documentation. MTDD
[2016-05-11 10:17] LABS: Glucose,Whole Blood 96 mg/dL (75-99)
[2016-05-11] MEDS: INSULIN DETEMIR 100 UNIT/ML 10 ML VIAL SQ SCH (10:34)
[2016-05-11 11:56] LABS: Glucose,Whole Blood 104 mg/dL (75-99)
--- NOTE | 2016-05-11 12:07 | P.PN ---
Subjective 81-year-old male patient with known history of coronary artery disease and paroxysmal atrial fibrillation has been maintained on warfarin on a long-term basis. The patient also has remote history of GI bleeding. The patient was transferred from [facility] because of GI bleed and Coumadin toxicity. Apparently presented initially to [facility] complaining of generalized weakness, loose diarrhea-like bowel activity and at that point he was found to have a hemoglobin of 5.3 and an INR of 5.6. The patient was given a unit of packed RBC and following that he got moved to our hospital where he received additional 3 units of packed RBC and currently his hemoglobin is up to 8.1. He remains hemodynamically stable. He was given vitamin K a total of 10 mg and he was also given Kcentra in the emergency department. His most recent INR is down to 1.1. Note that the patient was having dark tarry and he denied having any abdominal pain, no nausea no vomiting. The patient has been having these symptoms for almost 2 weeks and was suspected slow ongoing GI bleeding. We have witnessed 1 episode here in the intensive care unit. He has no chest pain. No change in mental status. No other complaints otherwise. His current cardiac rhythm is sinus bradycardia. He is also receiving fluids in the form of normal saline at the rate of 100 mL an hour and currently up on the order of the hospitalist the fluid infusion rate was dropped. On 05/11/2016 the patient is being seen on the telemetry unit. The patient got moved out of the intensive care unit. The patient remains nothing by mouth. The patient remains off Coumadin. His coagulopathy has been reversed. The patient's hemoglobin is stable. The patient has not had any further episodes of GI bleed. The patient will have a EGD this afternoon. The patient is hemodynamically stable. No other significant events overnight. Objective - Vital Signs Vital signs: Vital Signs Temp 97.1 F L 05/11/16 07:45 Pulse 64 05/11/16 07:45 Resp 18 05/11/16 07:45 BP 150/66 05/11/16 07:45 Pulse Ox 97 05/11/16 07:45 Intake & Output 05/10/16 05/11/16 05/11/16 18:59 06:59 18:59 Intake Total 970 Output Total 1000 300 Balance -30 -300 Weight 99.8 kg Intake: Intake, IV Titration 300 Amount Sodium Chloride 0.9% 1, 300 000 ml @ 100 mls/hr IV . Q10H [facility] Rx#:[id number] Oral 360 Blood Product 310 Rc As-1 Unit 310 [id number] Output: Urine 1000 300 Other: Voiding Method Urinal Urinal # Voids 1 1 1 # Bowel Movements 1 - Exam The patient appeared well nourished and normally developed. Vital signs as documented. Head exam is unremarkable. No scleral icterus or corneal arcus noted. Neck is without jugular venous distension, thyromegaly, or carotid bruits. Carotid upstrokes are brisk bilaterally. Lungs are clear to auscultation and percussion. Cardiac exam reveals the PMI to be normally sized and situated. Rhythm is regular. First and second heart sounds normal. No murmurs, rubs or gallops. Abdominal exam reveals normal bowel sounds, no masses , no organomegaly and no aortic enlargement. Extremities are nonedematous and both femoral and pedal pulses are normal. - Labs CBC & Chem 7: 05/11/16 06:19 05/11/16 06:19 Labs: Abnormal Lab Results - Last 24 Hours (Table) 05/10/16 05/10/16 05/11/16 Range/Units 12:05 17:35 00:18 RBC 3.04 L 2.76 L (4.30-5.90) m/uL Hgb 9.0 L 8.4 L (13.0-17.5) gm/dL Hct 27.8 L 25.3 L (39.0-53.0) % RDW 17.7 H 17.6 H (11.5-15.5) % Chloride (98-107) mmol/L BUN (9-20) mg/dL Creatinine (0.66-1.25) mg/dL Glucose (74-99) mg/dL POC Glucose (mg/dL) 184 H (75-99) mg/dL Calcium (8.4-10.2) mg/dL 05/11/16 05/11/16 05/11/16 Range/Units 06:19 06:19 06:19 RBC 2.93 L (4.30-5.90) m/uL Hgb 8.9 L (13.0-17.5) gm/dL Hct 26.8 L (39.0-53.0) % RDW 17.9 H (11.5-15.5) % Chloride 109 H (98-107) mmol/L BUN 21 H (9-20) mg/dL Creatinine 1.60 H (0.66-1.25) mg/dL Glucose 57 L (74-99) mg/dL POC Glucose (mg/dL) 62 L (75-99) mg/dL Calcium 8.3 L (8.4-10.2) mg/dL 05/11/16 05/11/16 05/11/16 Range/Units 06:47 06:48 11:41 RBC (4.30-5.90) m/uL Hgb (13.0-17.5) gm/dL Hct (39.0-53.0) % RDW (11.5-15.5) % Chloride (98-107) mmol/L BUN (9-20) mg/dL Creatinine (0.66-1.25) mg/dL Glucose (74-99) mg/dL POC Glucose (mg/dL) 121 H 109 H 104 H (75-99) mg/dL Calcium (8.4-10.2) mg/dL Assessment and Plan Plan: Assessment 1 upper GI bleeding with massive drop in hemoglobin down to 5.3. Rule out upper GI pathology/peptic ulcer disease complicated by a mild degree of coagulopathy with the patient's PT/INR being toxic at a time of admission. Patient is status post transfusion with 4 units of packed RBC and currently is hemodynamically stable On 05/11/2016, the patient is hemodynamically stable. The patient is awaiting an EGD and currently is nothing by mouth. The most recent hemoglobin is at 8.9. 2 anemia secondary to above. Hemoglobin today stable at 8.9. Coagulopathy has been reversed. 3 obesity 4 coronary artery disease 5 paroxysmal defibrillation 6 diabetes mellitus 7 renal failure, acute versus chronic. The patient status stable creatinine of 1.6 and this is likely a chronic renal insufficiency. 8 colonic polyps and last colonoscopy was done approximately 8 years ago. No previous EGD performed. 9 hypertension 10 sinus bradycardia Plan Percent with EGD today. The patient is hemodynamically stable.
[2016-05-11] MEDS ORDERED: IV FLUID CONTINUATION 1,000 ML IV ONE (14:26)
[2016-05-11] MEDS ORDERED: PROPOFOL 10 MG/ML 20 ML VIAL IV ONE (14:29)
[2016-05-11] MEDS ORDERED: LIDOCAINE 1% INJ 10MG/ML (20 ML MDV) ONE (14:29)
--- NOTE | 2016-05-11 14:40 | P.PN ---
Subjective Principal diagnosis: Severe anemia This is an 81-year-old gentleman who was transferred here from [facility] with symptoms that he presented there with of progressive fatigue and dyspnea. Patient was found to have severe anemia with a hemoglobin down to the 4 range. He had apparently been having dark stools for a four-week duration. Patient received a total of 4 units of packed red blood cells as well as vitamin K. He has a known history of paroxysmal atrial fibrillation. Coronary risk factors significant for hypertension, hyperlipidemia, diabetes, and paroxysmal atrial fibrillation. Hemoglobin this morning 8.9, BUN 21, creatinine 1.6, potassium 4.0. Blood pressure 148/66 with a heart rate in the 70s. Echocardiogram with Doppler study was performed which revealed an ejection fraction of 50-55%. Patient feeling much better today overall, scheduled for upper endoscopy today. Objective - Vital Signs Vital signs: Vital Signs Temp 97.1 F L 05/11/16 07:45 Pulse 76 05/11/16 12:00 Resp 16 05/11/16 12:00 BP 149/67 05/11/16 12:00 Pulse Ox 97 05/11/16 07:45 Intake & Output 05/10/16 05/11/16 05/11/16 18:59 06:59 18:59 Intake Total 970 Output Total 1000 900 Balance -30 -900 Weight 99.8 kg Intake: Intake, IV Titration 300 Amount Sodium Chloride 0.9% 1, 300 000 ml @ 100 mls/hr IV . Q10H [facility] Rx#:[id number] Oral 360 Blood Product 310 Rc As-1 Unit 310 [id number] Output: Urine 1000 900 Other: Voiding Method Urinal Urinal # Voids 1 1 1 # Bowel Movements 1 - Exam PHYSICAL EXAMINATION: HEENT: Head is atraumatic, normocephalic. Pupils equal, round. Neck is supple. There is no elevated jugular venous pressure. HEART EXAMINATION: Heart S1 and S2 systolic murmur is heard. CHEST EXAMINATION: Lungs are clear to auscultation and precussion. No chest wall tenderness is noted on palpation or with deep breathing. ABDOMEN: Soft, nontender. Bowel sounds are heard. No organomegaly noted. EXTREMITIES: 2+ peripheral pulses with trace evidence of peripheral edema and no calf tenderness noted. NEUROLOGIC patient is awake, alert and oriented -3. . - Labs CBC & Chem 7: 05/11/16 06:19 05/11/16 06:19 Labs: Abnormal Lab Results - Last 24 Hours (Table) 05/10/16 05/11/16 05/11/16 Range/Units 17:35 00:18 06:19 RBC 3.04 L 2.76 L 2.93 L (4.30-5.90) m/uL Hgb 9.0 L 8.4 L 8.9 L (13.0-17.5) gm/dL Hct 27.8 L 25.3 L 26.8 L (39.0-53.0) % RDW 17.7 H 17.6 H 17.9 H (11.5-15.5) % Chloride (98-107) mmol/L BUN (9-20) mg/dL Creatinine (0.66-1.25) mg/dL Glucose (74-99) mg/dL POC Glucose (mg/dL) (75-99) mg/dL Calcium (8.4-10.2) mg/dL 05/11/16 05/11/16 05/11/16 Range/Units 06:19 06:19 06:47 RBC (4.30-5.90) m/uL Hgb (13.0-17.5) gm/dL Hct (39.0-53.0) % RDW (11.5-15.5) % Chloride 109 H (98-107) mmol/L BUN 21 H (9-20) mg/dL Creatinine 1.60 H (0.66-1.25) mg/dL Glucose 57 L (74-99) mg/dL POC Glucose (mg/dL) 62 L 121 H (75-99) mg/dL Calcium 8.3 L (8.4-10.2) mg/dL 05/11/16 05/11/16 Range/Units 06:48 11:41 RBC (4.30-5.90) m/uL Hgb (13.0-17.5) gm/dL Hct (39.0-53.0) % RDW (11.5-15.5) % Chloride (98-107) mmol/L BUN (9-20) mg/dL Creatinine (0.66-1.25) mg/dL Glucose (74-99) mg/dL POC Glucose (mg/dL) 109 H 104 H (75-99) mg/dL Calcium (8.4-10.2) mg/dL Assessment and Plan (1) Severe anemia Status: Acute (2) Paroxysmal a-fib Status: Chronic (3) HTN (hypertension) Status: Chronic (4) Hyperlipemia Status: Chronic (5) Diabetes Status: Chronic (6) Renal failure Status: Acute Plan: Echocardiogram with Doppler study revealed an ejection fraction of 50-55%. We' ll continue the patient's current medications, creatinine 1.6 today. Upper endoscopy scheduled for today. DNP note has been reviewed, I agree with a documented findings and plan of care. Patient was seen and examined.
--- NOTE | 2016-05-11 15:06 | P.PCN ---
Date of Procedure: 05/11/16 Procedure(s) Performed: Procedure: Esophagogastroduodenoscopy. Preoperative diagnosis: GI bleeding and anemia. Postoperative diagnosis: 1. Small sliding hiatal hernia with LA grade B distal esophagitis with no active bleeding at the time of this exam. 2. Mild duodenitis with no obvious ulcers or active bleeding. Preparation and sedation: Was provided by anesthesia. Brief clinical history: The patient is an 81-year old male who was transferred from [facility] because of profound anemia and coagulopathy. He presented with diarrhea of around two weeks duration and reported dark stools and was found to have a Hb of 5.3. The patient is on coumadin for atrial fibrillation and had elevated INR of around 6.0. The patient has received blood and Vit K since admission and has been stable with no active bleeding. The details are summarized in the history and physical and dictated consultation and progress notes. This evaluation is to assess for a source of bleeding. Procedure: With the patient on his left lateral decubitus position and after informed consent and adequate sedation, I passed the Olympus-GIF 160 video upper endoscope through the cricopharyngeus down the esophagus. The distal esophagus showed couple linear erosions and circumferential erosion at the level of the GE junction coverd with dark exudate but not showing any evidence of active bleeding. There were no mucosal tears or varices. There was a small sliding hiatal hernia then the endoscope was advanced into the stomach which was insufflated with air and inspected in detail including the retroflex view in the cardia. No abnormalities were seen in the stomach. Finally, the endoscope was passed through the pylorus into the duodenum. There were no pyloric channel ulcers. Duodenal bulb showed numerous pinpoint submucosal hemorrhages on and in the vicinity of the Sujit's glands, but there were no ulcers or active bleeding. All secretions encountered during this exam were clear or bilious in color. I obtained pictures in the distal esophagus and duodenal bulb. No biopsies were obtained. The patient tolerated the procedure well. Plan: The patient was reassured and I discussed with his as well. It is possible that his esophagitis and/or his duodenitis has resulted in cumulative significant loss of blood because of his coagulopathy. Certainly other etiology and source within the small bowel and colon could not be totally excluded. Will allow bland diet and monitor his counts closely.
[2016-05-11 16:44] LABS: Glucose,Whole Blood 208 mg/dL (75-99)
[2016-05-11] MEDS: PANTOPRAZOLE 40 MG/10 ML VIAL IV SCH ×2 (16:51→21:08)
[2016-05-11] MEDS: FERROUS SULFATE 325 MG TAB PO SCH (16:58)
[2016-05-11] MEDS: POTASSIUM CHLORIDE ER 20 MEQ TAB.ER PO SCH (16:58)
[2016-05-11] MEDS: MULTIVITAMINS, THERA 1 EACH TAB PO SCH (16:58)
--- NOTE | 2016-05-11 18:46 | XR ---
EXAMINATION TYPE: XR chest 1V DATE OF EXAM: 05/11/2016 6:36 PM COMPARISON: 05/10/2016 HISTORY: Fluid overload. Heart failure. TECHNIQUE: Single frontal view of the chest is obtained. FINDINGS: Heart appears enlarged. There is no gross heart failure. There is a poor inspiration. Ther e are no hilar masses. There are chest leads. I see no definite pleural effusion. IMPRESSION: Poor inspiration is worse than exam yesterday. No gross heart failure. Cardiomegaly.
[2016-05-11] MEDS ORDERED: INSULIN DETEMIR 100 UNIT/ML 10 ML VIAL SQ SCH (21:00)
[2016-05-11 21:02] LABS: Glucose,Whole Blood 170 mg/dL (75-99)
[2016-05-11] MEDS: PRAVASTATIN SODIUM 40 MG TAB PO SCH (21:08)
[2016-05-12 05:59] LABS: Glucose,Whole Blood 168 mg/dL (75-99)
[2016-05-12] MEDS: INSULIN LISPRO (humaLOG) 300 UNIT/3 ML VIAL SQ SCH ×2 (06:28→12:06)
[2016-05-12 07:24] LABS: Prothrombin Time 10.6 sec (9.0-12.0)
[2016-05-12 07:34] LABS: Calcium 8.6 mg/dL (8.4-10.2); Potassium 4.4 mmol/L (3.5-5.1)
--- NOTE | 2016-05-12 08:40 | PN ---
An 81-year-old admitted with upper GI bleed, had an upper GI endoscopy which showed gastritis and esophagitis and duodenitis and patient is on Protonix at this point of time. Patient's INR is supratherapeutic. Discussed with Cardiology, discontinue Coumadin. Patient was continued on aspirin. Patient is on Coumadin for atrial fibrillation. REVIEW OF SYSTEMS: CARDIOVASCULAR: No chest pain, no orthopnea, no PND, no palpitations. PULMONARY: Denied any shortness of breath. No cough or hemoptysis. GASTROINTESTINAL: No diarrhea, nausea or vomiting. No abdominal pain. Normoactive bowel sounds. No more GI bleed, no more dark tarry stools. NEUROLOGIC: No headaches, no weakness, no numbness. Medications were reviewed. PHYSICAL EXAMINATION: VITAL SIGNS: Temperature 97.8, pulse of 62, respiratory rate of 16, blood pressure is 150/66, saturating at 95% on room air. GENERAL: The patient is alert and oriented x3, not in any acute distress. Well developed, well nourished. HEENT: Pupils are round and equally reacting to light. EOMI. No scleral icterus. No conjunctival pallor. Normocephalic, atraumatic. No pharyngeal erythema. No thyromegaly. CARDIOVASCULAR: S1 and S2 present. No murmurs, rubs, or gallops. PULMONARY: Chest is clear to auscultation, no wheezing or crackles. ABDOMEN: Soft, nontender, nondistended, normoactive bowel sounds. No palpable organomegaly. MUSCULOSKELETAL: No joint swelling or deformity. EXTREMITIES: No cyanosis, clubbing, or pedal edema. NEUROLOGICAL: Gross neurological examination did not reveal any focal deficits. SKIN: No rashes. Chest x-ray showed improved pulmonary edema. LABORATORY DATA: Creatinine stayed stable at 1.6. Patient probably has CKD stage III, hemoglobin of 8.9, remained stable since yesterday after blood transfusion. ASSESSMENT AND PLAN: 1. Acute upper gastrointestinal bleed secondary to gastritis, duodenitis precipitated by coagulopathy from Coumadin. 2. Renal failure. 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 This is probably his baseline creatinine. Creatinine is 1.6. 3. Chronic diastolic dysfunction with mild acute exacerbation which resolved. 4. Coronary artery disease. 5. Paroxysmal atrial fibrillation and since it is only paroxysmal atrial fibrillation and patient has gastrointestinal bleed twice in the recent past, anticoagulation will be discontinued. Patient will be started on aspirin. 6. Type 2 diabetes mellitus. 7. Hypertension. 8. Sinus bradycardia which is resolved. 9. Mildly elevated troponin secondary to demand ischemia. Patient will be discharged tomorrow. Will monitor tonight.
[2016-05-12] MEDS: POTASSIUM CHLORIDE ER 20 MEQ TAB.ER PO SCH (08:51)
[2016-05-12] MEDS: FERROUS SULFATE 325 MG TAB PO SCH (08:51)
[2016-05-12] MEDS: PANTOPRAZOLE 40 MG/10 ML VIAL IV SCH (08:51)
--- NOTE | 2016-05-12 09:47 | CDI ---
Denis Bronson [address] [place] [address] Documentation Clarification Form Date: 05/11/2016 10:01:00 AM From: Emmanuel Shell RN, BSN, CDI Admit Date: 05/09/2016 12:56:00 PM Patient Name: Jean Carlos Cole Visit Number: [id number] Dr. Thang Mcclure: A diagnosis of anemia lacks specificity to accurately reflect your patients severity of condition and clarification is needed. Patient history/risk factors: 81 yo male with a history of Afib presents on Coumadin presents with multiple episodes of dark stools. Clinical Indicators: Hemoglobin: 6.2 Hematocrit: 19.4 INR: 5.6 Treatment: 4U PRBC's, serial CBC, Feosol EGD: distal esophagitis with no active bleeding, mild duodenitis with no obvious ulcers or active bleeding In order to capture the severity of condition, please clarify the type of anemia and etiology if known: Acute blood loss anemia Acute on chronic blood loss anemia Chronic blood loss anemia Iron deficiency anemia Hemolytic anemia Drug induced anemia Anemia of chronic kidney disease Unable to determine Other, please specify Please document in your progress notes and discharge summary in order to capture severity of illness and risk of mortality. Include clinical findings that support your diagnosis. FYI: Press F11 to launch patient chart. Place X here if this finding has no clinical significance, is not applicable or if you are not able to provide any additional documentation. MTDD
[2016-05-12 10:12] VITALS: RESP 20
[2016-05-12 11:32] VITALS: BP 131/61; PULSE 73; TEMP 97.5
[2016-05-12 11:47] LABS: Glucose,Whole Blood 245 mg/dL (75-99)
[2016-05-12] MEDS: MULTIVITAMINS, THERA 1 EACH TAB PO SCH (12:06)
--- NOTE | 2016-05-12 12:29 | P.PN ---
Subjective Principal diagnosis: 81-year-old male status post EGD for anemia and coagulopathy with dark stools. Findings of small sliding hiatal hernia LA grade B distal esophagitis with no active bleeding. Mild duodenitis with no obvious sources of bleeding or ulcers. Tolerating regular diet. Denies epigastric pain. No recurrence of bleeding. INR 1.0. Objective - Vital Signs Vital signs: Vital Signs Temp 97.5 F L 05/12/16 11:31 Pulse 73 05/12/16 11:31 Resp 20 05/12/16 11:31 BP 131/61 05/12/16 11:31 Pulse Ox 96 05/12/16 11:31 Intake & Output 05/11/16 05/12/16 05/12/16 18:59 06:59 18:59 Intake Total 440 180 Output Total 900 Balance -460 180 Weight 100 kg Intake: IV 200 Oral 240 180 Output: Urine 900 Other: Voiding Method Urinal # Voids 1 1 - Exam General appearance: The patient is alert, oriented, in no acute distress. HET: Head is normocephalic and atraumatic. Pupils are equal and reactive. Oropharynx is clear without lesions. Neck: Supple without lymphadenopathy. Trachea midline. Heart: S1 S2. Lungs: No crackles or wheezes are heard. Abdomen: Soft, nontender, nondistended with bowel sounds. No peritoneal signs. No palpable organomegaly or masses. Extremities: Normal skin color and turgor. No cyanosis, rash, ulceration, clubbing, or edema. Radial and pedal pulses are 2/4 bilaterally. Neurological: No focal deficits. Strength and sensation are grossly intact. - Labs CBC & Chem 7: 05/11/16 06:19 05/12/16 06:36 Labs: Abnormal Lab Results - Last 24 Hours (Table) 05/09/16 05/11/16 05/11/16 Range/Units 13:05 16:42 21:00 Chloride (98-107) mmol/L Creatinine (0.66-1.25) mg/dL Glucose (74-99) mg/dL POC Glucose (mg/dL) 208 H 170 H (75-99) mg/dL Crossmatch See Detail 05/12/16 05/12/16 05/12/16 Range/Units 05:57 06:36 11:45 Chloride 108 H (98-107) mmol/L Creatinine 1.49 H (0.66-1.25) mg/dL Glucose 154 H (74-99) mg/dL POC Glucose (mg/dL) 168 H 245 H (75-99) mg/dL Crossmatch Assessment and Plan (1) GI bleed Narrative/Plan: Gastritis duodenitis exacerbated by Coumadin coagulopathy. Status: Acute (2) Warfarin-induced coagulopathy Status: Acute (3) Elevated INR Status: Acute (4) Paroxysmal a-fib Status: Chronic Plan: 1. Agreeable for discharge. 2. Diet as tolerated. Assessment and plan a care discussed with Dr. Acosta.
--- NOTE | 2016-05-12 14:34 | P.PN ---
Subjective Principal diagnosis: Severe anemia This is an 81-year-old gentleman who was transferred here from [facility] with symptoms that he presented there with of progressive fatigue and dyspnea. Patient was found to have severe anemia with a hemoglobin down to the 4 range. He had apparently been having dark stools for a four-week duration. Patient received a total of 4 units of packed red blood cells as well as vitamin K. He has a known history of paroxysmal atrial fibrillation. Coronary risk factors significant for hypertension, hyperlipidemia, diabetes, and paroxysmal atrial fibrillation. creatinine 1.4, potassium 4.4. Blood pressure 130/66 with a heart rate in the 70s. Echocardiogram with Doppler study was performed which revealed an ejection fraction of 50-55%. Patient feeling much better today overall, EGD was performed by Dr. Whitt who felt that the esophagitis and/or duodenitis had resulted in significant blood loss because of coagulopathy.we will check to see if the patient has coverage for Eliquis, if so we will initiate Eliquis 2-1/2 mg one tablet by mouth twice a day. We will wait 4 days before we start this. Objective - Vital Signs Vital signs: Vital Signs Temp 97.5 F L 05/12/16 11:31 Pulse 73 05/12/16 11:31 Resp 20 05/12/16 11:31 BP 131/61 05/12/16 11:31 Pulse Ox 96 05/12/16 11:31 Intake & Output 05/11/16 05/12/16 05/12/16 18:59 06:59 18:59 Intake Total 440 180 Output Total 900 Balance -460 180 Weight 100 kg Intake: IV 200 Oral 240 180 Output: Urine 900 Other: Voiding Method Urinal # Voids 1 1 - Exam PHYSICAL EXAMINATION: HEENT: Head is atraumatic, normocephalic. Pupils equal, round. Neck is supple. There is no elevated jugular venous pressure. HEART EXAMINATION: Heart S1 and S2 systolic murmur is heard. CHEST EXAMINATION: Lungs are clear to auscultation and precussion. No chest wall tenderness is noted on palpation or with deep breathing. ABDOMEN: Soft, nontender. Bowel sounds are heard. No organomegaly noted. EXTREMITIES: 2+ peripheral pulses with trace evidence of peripheral edema and no calf tenderness noted. NEUROLOGIC patient is awake, alert and oriented -3. . - Labs CBC & Chem 7: 05/11/16 06:19 05/12/16 06:36 Labs: Abnormal Lab Results - Last 24 Hours (Table) 05/09/16 05/11/16 05/11/16 Range/Units 13:05 16:42 21:00 Chloride (98-107) mmol/L Creatinine (0.66-1.25) mg/dL Glucose (74-99) mg/dL POC Glucose (mg/dL) 208 H 170 H (75-99) mg/dL Crossmatch See Detail 05/12/16 05/12/16 05/12/16 Range/Units 05:57 06:36 11:45 Chloride 108 H (98-107) mmol/L Creatinine 1.49 H (0.66-1.25) mg/dL Glucose 154 H (74-99) mg/dL POC Glucose (mg/dL) 168 H 245 H (75-99) mg/dL Crossmatch Assessment and Plan (1) Severe anemia Status: Acute (2) Paroxysmal a-fib Status: Chronic (3) HTN (hypertension) Status: Chronic (4) Hyperlipemia Status: Chronic (5) Diabetes Status: Chronic (6) Renal failure Status: Acute Plan: Echocardiogram with Doppler study revealed an ejection fraction of 50-55%. We' ll continue the patient's current medications. per endoscopy performed yesterday by Dr. Whitt who felt that the esophagitis and duodenitis had resulted in cumulative significant loss of blood because of coagulopathy. Therefore we will check to see if the patient has coverage for Eliquis, if so we will initiate Eliquis 2-1/2 mg one tablet by mouth twice a day in 4 days. On discharge home patient will follow-up in the office with Dr. Tam. DNP note has been reviewed, I agree with a documented findings and plan of care. Patient was seen and examined.
--- NOTE | 2016-05-13 09:40 | DS ---
DATE OF ADMISSION: 05/09/2016 DATE OF DISCHARGE: 05/12/2016 Patient is an 81-year-old gentleman who came in with upper GI bleed. Patient appeared to have mild esophagitis and gastritis and duodenitis. Patient was discharged on Protonix. Patient came in with supratherapeutic INR. Coumadin will be discontinued. Patient can be restarted on anticoagulation. Patient will be evaluated for Eliquis by cardiology. Cardiology will give him the script. The patient was seen and examined on the day of discharge. Vitals are stable. PHYSICAL EXAMINATION: GENERAL: The patient is alert and oriented x3, not in any acute distress. Well developed, well nourished. HEENT: Pupils are round and equally reacting to light. EOMI. No scleral icterus. No conjunctival pallor. Normocephalic, atraumatic. No pharyngeal erythema. No thyromegaly. CARDIOVASCULAR: S1 and S2 present. No murmurs, rubs, or gallops. PULMONARY: Chest is clear to auscultation, no wheezing or crackles. ABDOMEN: Soft, nontender, nondistended, normoactive bowel sounds. No palpable organomegaly. MUSCULOSKELETAL: No joint swelling or deformity. EXTREMITIES: No cyanosis, clubbing, or pedal edema. NEUROLOGICAL: Gross neurological examination did not reveal any focal deficits. SKIN: No rashes. FINAL DIAGNOSES: 1. Acute upper gastrointestinal bleed secondary to gastritis, duodenitis and esophagitis. 2. Acute blood loss anemia secondary to that. 3. Acute renal failure secondary to prerenal azotemia from gastrointestinal bleed. Part of renal failure, patient may have chronic kidney disease stage II to III. 4. Chronic diastolic dysfunction with mild acute exacerbation, which improved. 5. Coronary artery disease. 6. Paroxysmal atrial fibrillation. 7. Type 2 diabetes mellitus. 8. Hypertension. 9. Sinus bradycardia. 10. Mildly elevated troponin. The patient will be discharged today. Patient's losartan will be discontinued. Patient will definitely benefit from SHANTI inhibitor or ARB. Once his kidney function settles, patient can be restarted back on that medication. Since his blood pressure is on the low-normal side and unsettled creatinine, I am going to hold off on SHANTI inhibitor upon discharge. We can discontinue amlodipine and patient can be reinitiated as an outpatient once his kidney function returns to his baseline, which I do not know what his baseline is. Although patient's Lasix will be continued at 40 mg. Spent greater than 35 minutes in total discharge process. CHF discharge instructions will be provided. Diabetic 1800 calorie diet and cardiac diet. Patient will follow with cardiology as an outpatient. The patient will follow with his physician in 3 to 7 days.
[2016-05-17] MEDS ORDERED: APIXABAN 2.5 MG TABLET PO SCH (08:00)
== END 2016-05-12 16:01 | disposition home or self-care (01) | DRG 377 ==
LOC: EC 10:32 → 6ICU 12:56 → 6SEL 05-10 15:25
PROVIDERS: ADMIT Internal Medicine; ATTEND Internal Medicine
PROC: 30233N1 Transfusion of Nonautologous Red Blood Cells into Peripheral Vein, Percutaneous Approach (ICD-10-PCS; 2016-05-09)
PROC: 0DJ08ZZ Inspection of Upper Intestinal Tract, Via Natural or Artificial Opening Endoscopic (ICD-10-PCS; principal; 2016-05-11 07:30)
DX: K29.81 Duodenitis with bleeding (principal); I50.33 Acute on chronic diastolic (congestive) heart failure; N17.9 Acute kidney failure, unspecified; D62 Acute posthemorrhagic anemia; I24.8 Other forms of acute ischemic heart disease; I13.0 Hypertensive heart and chronic kidney disease with heart failure and stage 1 through stage 4 chronic kidney disease, or unspecified chronic kidney disease; E11.22 Type 2 diabetes mellitus with diabetic chronic kidney disease; I48.0 Paroxysmal atrial fibrillation; K29.71 Gastritis, unspecified, with bleeding; K20.9 Esophagitis, unspecified; E66.9 Obesity, unspecified; E78.5 Hyperlipidemia, unspecified; I25.10 Atherosclerotic heart disease of native coronary artery without angina pectoris; I25.2 Old myocardial infarction; I44.0 Atrioventricular block, first degree; K44.9 Diaphragmatic hernia without obstruction or gangrene; N18.2 Chronic kidney disease, stage 2 (mild); T45.515A Adverse effect of anticoagulants, initial encounter; R79.1 Abnormal coagulation profile; Z79.01 Long term (current) use of anticoagulants; Z79.4 Long term (current) use of insulin; Z79.82 Long term (current) use of aspirin; Z79.899 Other long term (current) drug therapy; Z87.891 Personal history of nicotine dependence; Z82.49 Family history of ischemic heart disease and other diseases of the circulatory system; Y92.009 Unspecified place in unspecified non-institutional (private) residence as the place of occurrence of the external cause
CPT/HCPCS: 36415; 43239; 71010; 80048; 80061; 82330; 82550; 82553; 83036; 83735; 84100; 84443; 84484; 85025; 85027; 85610; 86850; 86900; 86901; 86920; 93005; 93306; 96361; 96365; 96367; 99285

== ENCOUNTER 2016-06-17 10:30 | Inpatient (IN) | payer MEDICARE, BC ==
[2016-06-17] MEDS: PANTOPRAZOLE 40 MG/10 ML VIAL IVP SCH ×2 (16:09→21:59)
[2016-06-17] MEDS: SODIUM CHLORIDE 0.9% 1,000 ML IV SCH ×2 (16:12→21:59)
[2016-06-17 17:04] LABS: Glucose,Whole Blood 212 mg/dL (75-99)
[2016-06-17] MEDS: INSULIN LISPRO (humaLOG) 300 UNIT/3 ML VIAL SQ SCH ×2 (18:03→22:00)
[2016-06-17] MEDS ORDERED: MAGNESIUM CITRATE 296 ML BOTTLE PO ONE (19:00)
[2016-06-17 21:40] LABS: Glucose,Whole Blood 225 mg/dL (75-99)
[2016-06-18 07:41] LABS: Glucose,Whole Blood 144 mg/dL (75-99)
[2016-06-18] MEDS: PANTOPRAZOLE 40 MG/10 ML VIAL IVP SCH ×2 (07:56→22:27)
[2016-06-18] MEDS: INSULIN LISPRO (humaLOG) 300 UNIT/3 ML VIAL SQ SCH ×4 (07:58→22:27)
[2016-06-18] MEDS ORDERED: SIMETHICONE 40 MG/0.6 ML DROPS 2,000 MG/30 ML BOTTLE PO ONE (08:22)
--- NOTE | 2016-06-18 08:49 | HP ---
DATE OF ADMISSION: CHIEF COMPLAINT: Dark colored stools. HISTORY OF PRESENT ILLNESS: Mr. Cole is an 81-year-old male with a known history of recent GI bleed, coronary artery disease, paroxysmal atrial fibrillation on anticoagulation with Xarelto and hypertension who initially presented to [facility] with black tarry stools. Patient has been present for the past one week. His hemoglobin initially was 11.3 dropped down to 8.5 today. Patient recently had EGD which did not show any bleeding source. The patient was seen by GI at [facility] and was sent to [facility] for further evaluation and possible capsule endoscopy. Currently patient denied any complaints of nausea, vomiting, or abdominal pain. Currently maintained in sinus rhythm. No complaints of chest pain or short of breath. No leg swelling. Gastroenterology has been consulted for further evaluation. REVIEW OF SYSTEMS: CONSTITUTIONAL: No fever, no chills. No weakness, malaise. RESPIRATORY: No cough or sputum production. CARDIOVASCULAR: No chest pain or shortness of breath. No leg swelling. ABDOMEN: No nausea or vomiting. Patient does have black tarry stools. No diarrhea. GENITOURINARY: Negative. ENDOCRINE: Negative. PSYCHIATRIC: Negative. SKIN: Negative. MUSCULOSKELETAL: Negative. All other 14-point review of systems negative except as above. PAST MEDICAL HISTORY: Atrial fibrillation on anticoagulant with Xarelto, coronary artery disease, hypertension, diabetes mellitus, hyperlipidemia, history of AK, iron deficiency anemia, history of colonic polyps. No surgical history except colonoscopy and EGD and colon polyp removal. No psychosocial history. SOCIAL HISTORY: Patient is a former smoker, quit 20 years ago. Appears to have heavy alcohol use in the past. Denied any drugs or IVDU. FAMILY HISTORY: Mother had cancer and AK. Father had cancer. Home medications include: 1. Aspirin. 2. Vitamin D2. 3. Ferrous sulfate. 4. Lasix. 5. Levemir. 6. Multivitamin. 7. Potassium chloride. 8. Potassium gluconate. 9. Pravastatin. 10. Sitagliptin. 11. Omeprazole. 12. Losartan. 13. Xarelto. 14. Amlodipine. ALLERGIES: No known drug allergies. PHYSICAL EXAMINATION: An 81-year-old male lying in bed comfortably, awake, alert, oriented x3, appears to be in no apparent distress. VITALS: Blood pressure is 121/60, pulse is 61, respirations 16, temperature afebrile, pulse ox 97% on room air. HEENT: Atraumatic, normocephalic. Neck is supple. No JVD. CVS EXAM: S1, S2 heard. No murmurs, no gallop. LUNGS: Bilateral air entry is present. No wheezing. No crackles. ABDOMEN: Soft, nontender. Bowel sounds are present. [employer] PROFESSIONAL: Awake, alert, oriented, x3. No focal deficits. Cranial nerves grossly intact. PSYCHIATRIC: Cooperative. Laboratory data at [facility] was interviewed. IMPRESSION: 1. Dark colored stools, possible upper gastrointestinal bleed with recent endoscopy. GI was planning for a capsule endoscopy at this time. Will continue the PPI and monitor hemoglobin and hematocrit and follow up closely. 2. Acute blood loss anemia secondary to possible upper gastrointestinal bleed. 3. Atrial fibrillation paroxysmal, on anticoagulation with Xarelto. We will Xarelto at this time due to gastrointestinal bleed. 4. Chronic congestive heart failure with diastolic dysfunction. 5. History of coronary artery disease. 6. Type 2 diabetes mellitus, insulin dependent. 7. Hypertension. DISCUSSION AND PLAN: Patient will be continued on PPI and monitor H&H. ( ) has been consulted for further evaluation. Will continue the home medications and follow up closely. Further recommendations based on the clinical course. Continue the home medications. APPLED
[2016-06-18] MEDS: INSULIN DETEMIR 100 UNIT/ML 10 ML VIAL SQ SCH ×2 (08:52→22:26)
--- NOTE | 2016-06-18 09:33 | P.CONS ---
History of Present Illness - Reason for Consult Consult date: 06/18/16 Anemia GI bleed Requesting physician: Joe Cassidy - History of Present Illness 81-year-old gentleman followed by Janene MAE, past medical history of atrial fibrillation Xarelto maintenance, CAD, diabetes mellitus, CHF, hypertension, hyperlipidemia, and GA. Patient presented to [facility] with a hemoglobin of 8.5-9.2 and reported black tarry stools for the last week. He was having bowel moments 2-3 times a day becoming more weak and tired. Recently evaluated at [facility] on 05/10/2016 for acute upper GI bleed which he presented with profound anemia and coagulopathy. At that time hemoglobin was 5.3 required 4 units of blood. EGD on 05/11/[address] Acosta showed evidence of mild esophagitis and duodenitis. Previously on Coumadin changed to Eliquis but was too expensive and changed to Xarelto 2 weeks ago. Last dose of Xarelto was 2 days ago. He was transferred to [facility] last night for small bowel capsule endoscopy evaluation of anemia. Black tarry stool at [place] prior to transfer without further episodes. Hemoglobin this morning is 9.0. He denies abdominal pain. No nausea or vomiting. No fevers. Last colonoscopy in August 2014 at [facility] polypectomy 4. Currently undergoing small bowel capsule endoscopy. Review of Systems Constitutional: Denies fever, chills, sweats, weight gain, or loss. HEENT: Negative for migraines, blurred vision or loss, earaches, drainage, tinnitus, oral mucosal lesions, dysphagia, or odynophagia. Cardiac: CAD. Atrial fibrillation. Congestive heart failure. Hyperlipidemia. Hypertension. GA. Negative for chest pain, arrhythmias, or palpitation. Respiratory: Negative for shortness of breath, hemoptysis, cough, or sputum production. Gastrointestinal: See HPI for pertinent findings. Genitourinary: Negative for hematuria, urgency, frequency, polyuria, dysuria, or penile discharge. Musculoskeletal: Negative for muscle aches, swelling, arthritis, and arthralgias. Neurologic: Negative for stroke or TIA. Endocrine: Diabetes mellitus. Negative for thyroid problems. Skin: Negative for rash or itching. Psychiatric: Negative history for depression and anxiety All systems: negative (See HPI) Past Medical History Past Medical History: Atrial Fibrillation, Coronary Artery Disease (CAD), Diabetes Mellitus, GI Bleed, Hyperlipidemia, Hypertension, Myocardial Infarction (GA) Additional Past Medical History / Comment(s): Pt recently admitted to [facility] on 05/09/16 with UGI bleed/gastritis, esophagitis, doudenitis, acute blood loss anemia and iron deficiency anemia. Other hx: IDDM type II, colonic benign polyps, CKD-diabetic nephropathy, pt denies past CHF, Afib paraxysmal, sinus bradycardia. Last Myocardial Infarction Date:: 02/07/2001 History of Any Multi-Drug Resistant Organisms: None Reported Past Surgical History: No Surgical Hx Reported, Tonsillectomy Additional Past Surgical History / Comment(s): Colonoscopies with benign colon polyp removal (2014)/EGD, bilateral cataracts removed. Past Anesthesia/Blood Transfusion Reactions: No Reported Reaction Additional Past Anesthesia/Blood Transfusion Reaction / Comm: Pt has received blood without reaction. Past Psychological History: No Psychological Hx Reported Additional Psychological History / Comment(s): Pt resides with his spouse. He is independent. 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 Smoking Status: Former smoker Past Alcohol Use History: Heavy Additional Past Alcohol Use History / Comment(s): P started smoking in 1950 and quit in 1996. Pt was a heavy drinker but quit drinking 20 years ago. Past Drug Use History: None Reported - Past Family History Mother History Unknown: Yes Family Medical History: Myocardial Infarction (GA) Additional Family Medical History / Comment(s): Mother in her sleep at the age of 60yr of unknown cause. Father Family Medical History: Cancer Additional Family Medical History / Comment(s): Father had pancreatic cancer. Medications and Allergies Home Medications Medication Instructions Recorded Confirmed Type Aspirin [Adult Low Dose Aspirin EC] 81 mg PO DAILY 05/09/16 06/17/16 History Ergocalciferol (Vitamin D2) 50,000 unit PO Q30D 05/09/16 06/17/16 History [Vitamin D2] Ferrous Sulfate [Iron (65 MG 325 mg PO DAILY 05/09/16 06/17/16 History Elemental)] Furosemide [Lasix] 40 mg PO DAILY 05/09/16 06/17/16 History Insulin Detemir [Levemir Flextouch] 30 units SQ BID 05/09/16 06/17/16 History Multivitamin [Men's Multi-Vitamin] 1 tab PO DAILY 05/09/16 06/17/16 History Potassium Chloride [Klor-Con 20] 20 meq PO DAILY 05/09/16 06/17/16 History Potassium Gluconate 595 mg PO DAILY 05/09/16 06/17/16 History Pravastatin Sodium [Pravachol] 40 mg PO HS 05/09/16 06/17/16 History sitaGLIPtin [Januvia] 50 mg PO DAILY 05/09/16 06/17/16 History Losartan Potassium [Cozaar] 50 mg PO DAILY 06/17/16 06/17/16 History Rivaroxaban [Xarelto] 15 mg PO DAILY 06/17/16 06/17/16 History amLODIPine BESYLATE [Norvasc] 10 mg PO DAILY 06/17/16 06/17/16 History Allergies Allergy/AdvReac Type Severity Reaction Status Date / Time No Known Allergies Allergy Verified 06/17/16 13:22 Physical Exam Vitals: Vital Signs Temp Pulse Resp BP Pulse Ox 06/18/16 07:00 97.5 F L 70 20 119/53 94 L 06/17/16 23:00 97.0 F L 66 18 125/63 95 06/17/16 15:00 97.7 F 67 16 163/72 97 06/17/16 12:46 97.7 F 61 16 121/60 97 Intake and Output 06/17/16 06/18/16 06/18/16 22:59 06:59 14:59 Intake Total 500 0 Balance 500 0 Intake: Oral 500 0 Other: # Voids 3 # Bowel Movements 2 General appearance: The patient is alert, oriented, in no acute distress. HET: Head is normocephalic and atraumatic. Pupils are equal and reactive. Oropharynx is clear without lesions. Neck: Supple without lymphadenopathy. Trachea midline. Heart: S1 S2. Regular rate and rhythm. Lungs: No crackles or wheezes are heard. Abdomen: Soft, nontender, nondistended with bowel sounds. No peritoneal signs. No palpable organomegaly or masses. Extremities: Normal skin color and turgor. No cyanosis, rash, ulceration, clubbing, or edema. Radial and pedal pulses are 2/4 bilaterally. Neurological: No focal deficits. Strength and sensation are grossly intact. Results CBC & Chem 7: 06/18/16 09:14 06/18/16 09:14 Labs: Abnormal Lab Results - Last 24 Hours (Table) 06/17/16 06/17/16 06/18/16 Range/Units 17:03 21:35 07:37 POC Glucose (mg/dL) 212 H 225 H 144 H (75-99) mg/dL Assessment and Plan (1) Symptomatic anemia Narrative/Plan: Possible small bowel AVM Status: Acute (2) Acute blood loss anemia Status: Acute (3) Atrial fibrillation Narrative/Plan: Anticoagulation on hold Status: Acute (4) Melena Status: Acute (5) GI bleed Status: Acute Plan: 1. Small bowel capsule endoscopy in progress. Will await results further recommendations forthcoming. 2. Continue to monitor CBC. 3. Continue to hold anticoagulation. 4. Transfusion as indicated. 5. We'll follow with you. Thank you for this kind referral and the opportunity to participate in the care of your patient. This consultation was discussed with Dr. Patel. The impression and plan of care have been directed as dictated.
[2016-06-18 10:03] LABS: Basophils % (A) 0 %; CH 30.4; CHCM 32.5; Eosinophils # (A) 0.2 k/uL (0-0.7); Eosinophils % (A) 3 %; Luc # (Auto) 0.11; Luc % (Auto) 2; Lymphocytes % (A) 16 %; MCH 30.2 pg (25.0-35.0); MCHC 32.1 g/dL (31.0-37.0); Mean Platelet Volume 7.3; Monocytes # (A) 0.4 k/uL (0-1.0); Monocytes % (A) 6 %; Neutrophils # (A) 4.8 k/uL (1.3-7.7); Neutrophils % (A) 74 %; RBC 2.98 m/uL (4.30-5.90); RDW 14.2 % (11.5-15.5); WBC 6.5 k/uL (3.8-10.6); WBC (Perox) 7.16
[2016-06-18] MEDS: SODIUM CHLORIDE 0.9% 1,000 ML IV SCH ×2 (10:15→22:26)
[2016-06-18 10:20] LABS: Calcium 8.6 mg/dL (8.4-10.2); Potassium 4.4 mmol/L (3.5-5.1)
[2016-06-18 12:31] LABS: Glucose,Whole Blood 135 mg/dL (75-99)
[2016-06-18 17:35] LABS: Glucose,Whole Blood 101 mg/dL (75-99)
[2016-06-18] MEDS ORDERED: MAGNESIUM CITRATE 296 ML BOTTLE PO ONE (19:00)
[2016-06-18 21:16] LABS: Glucose,Whole Blood 134 mg/dL (75-99)
[2016-06-19] MEDS: SODIUM CHLORIDE 0.9% 1,000 ML IV SCH ×2 (05:46→14:57)
[2016-06-19 07:32] LABS: Glucose,Whole Blood 75 mg/dL (75-99)
[2016-06-19] MEDS ORDERED: SIMETHICONE 40 MG/0.6 ML DROPS 2,000 MG/30 ML BOTTLE PO ONE (07:56)
[2016-06-19] MEDS: INSULIN LISPRO (humaLOG) 300 UNIT/3 ML VIAL SQ SCH ×3 (08:23→17:54)
[2016-06-19] MEDS: PANTOPRAZOLE 40 MG/10 ML VIAL IVP SCH (09:32)
[2016-06-19 09:56] LABS: CH 30.5; CHCM 32.3; HCT 27.9 % (39.0-53.0); HDW 2.84; MCH 30.5 pg (25.0-35.0); MCHC 32.2 g/dL (31.0-37.0); MCV 94.7 fL (80.0-100.0); Mean Platelet Volume 7.3; RBC 2.94 m/uL (4.30-5.90); RDW 14.1 % (11.5-15.5); WBC 7.4 k/uL (3.8-10.6)
[2016-06-19 10:09] LABS: Calcium 8.8 mg/dL (8.4-10.2); Potassium 4.1 mmol/L (3.5-5.1)
--- NOTE | 2016-06-19 10:53 | PN ---
DATE OF SERVICE: 06/19/2016 Patient is an 81-year-old pleasant white male admitted to the hospital with acute GI bleed. He had multiple episodes of black tarry stools. He had an upper endoscopy done [address] Acosta which showed some mild gastritis and duodenitis. He has been on Xarelto for A. fib which has been on hold and the patient is scheduled for a small bowel capsule endoscopy to evaluate further. He denies any symptoms since being in the hospital. He did not have an episodes of further bleeding. On physical examination, he appears comfortable, in no apparent distress. Vital signs are stable. Blood pressure is 122/60, pulse is 71, temperature 97.9. HEENT EXAMINATION: Unremarkable. Conjunctivae are pink, sclera nonicteric, oral cavity no lesions. NECK: No JVD or lymph node enlargement. Chest was clear to auscultation. HEART: Regular rate and rhythm. Abdomen is soft, bowel sounds are positive, no organomegaly. EXTREMITIES: No pedal edema. SKIN: No rashes. NEURO: He is alert and oriented x3. No focal deficits. Labs from today: Hemoglobin is 9, WBC is 7.4, platelets are 223. IMPRESSION: Acute gastrointestinal bleed, possibly small bowel in etiology. He had an upper endoscopy done 4 weeks ago that showed mild gastritis and duodenitis and a colonoscopy 2 years ago showed multiple small polyps. Patient is presently undergoing small bowel capsular endoscopy study. RECOMMENDATIONS: 1. Will keep him on a clear liquid diet. 2. Continue to hold Xarelto. 3. Will follow him closely during his hospital stay.
[2016-06-19 12:01] LABS: Glucose,Whole Blood 67 mg/dL (75-99)
[2016-06-19 12:46] LABS: Glucose,Whole Blood 82 mg/dL (75-99)
[2016-06-19] MEDS: INSULIN DETEMIR 100 UNIT/ML 10 ML VIAL SQ SCH (13:10)
--- NOTE | 2016-06-19 15:21 | PN ---
DATE OF SERVICE: 06/18/2016 Mr. Cole is an 81-year-old male with known history of recent GI bleed and negative EGD, paroxysmal atrial fibrillation on anticoagulation on Xarelto admitted to the hospital and actually transferred from [facility] with dark tarry stools for the past one week. Hemoglobin dropped from 11.3 to 8.5 and today hemoglobin actually improved to 9.0. He is going for capsule endoscopy, possible AV malformation has been suspected. Otherwise patient denied any complaints of abdominal pain. No further episodes of dark colored stools. No nausea, vomiting, abdominal pain. No chest pain or shortness of breath. Complete review of systems negative except as above. CURRENT MEDICATIONS: Reviewed. PHYSICAL EXAMINATION: An 81-year-old male lying on the bed comfortably, awake, alert, oriented, x3, appears to be in no apparent distress. VITALS: Blood pressure is 128/60, pulse is 71, respirations 20, temperature afebrile, pulse ox 97% on room air. HEENT: Atraumatic, normocephalic. Neck is supple. No JVD. CVS: S1, S2 heard. No murmurs, no gallop, no rub. LUNGS: Bilateral air entry present. No wheezing, no crackles. Nonlabored breathing. ABDOMEN: Soft, nontender, bowel sounds present. CREDIT MANAGER: Awake, alert and oriented x3. No focal deficit. EXTREMITIES: No edema. Pulses palpable bilaterally. No clubbing or cyanosis. PSYCHIATRIC: Cooperative. LABORATORY DATA: WBC 6.5, hemoglobin 9.0, platelets 213. Sodium 142, potassium 4.4, chloride 108, bicarb is 27, BUN 19, creatinine 1.42. Blood sugar is controlled. HgA1c 6.0. IMPRESSION: 1. Dark colored stools with possible gastrointestinal bleed with recent negative endoscopy. Gastroenterology is planning for capsular endoscopy with suspected arteriovenous malformation. Continue the proton pump inhibitor and monitor hemoglobin and hematocrit closely. 2. Acute blood loss anemia/symptomatic anemia secondary to gastrointestinal bleed. Hemoglobin is fairly stable. 3. Atrial fibrillation, on anticoagulation with Xarelto, which has been held at this time. 4. Chronic congestive heart failure with diastolic dysfunction. 5. History of coronary artery disease. 6. Type 2 diabetes mellitus, insulin-dependent, controlled. 7. Hypertension. 8. Deep venous thrombosis prophylaxis with SCD. Discussion and plan: Patient will be continued on PPI and monitor H&H. GI is planning for capsular endoscopy. Will continue to follow closely. Further recommendations based on clinical course.
[2016-06-19] MEDS: PANTOPRAZOLE 40 MG TABLET PO SCH (15:58)
[2016-06-19 17:01] LABS: Glucose,Whole Blood 142 mg/dL (75-99)
[2016-06-19] MEDS ORDERED: ACETAMINOPHEN TAB 325 MG TAB PO PRN (18:45)
[2016-06-19] MEDS: LEVOFLOXACIN 500MG-D5W PMX 500 MG in DEXTROSE/WATER 1 100ML.BAG IVPB SCH (19:43)
[2016-06-19] MEDS ORDERED: PRAVASTATIN SODIUM 40 MG TAB PO ONE (21:00)
[2016-06-19] MEDS ORDERED: INSULIN DETEMIR 100 UNIT/ML 10 ML VIAL SQ ONE (21:00)
[2016-06-19 23:05] LABS: Glucose,Whole Blood 162 mg/dL (75-99)
[2016-06-20 07:31] LABS: Glucose,Whole Blood 76 mg/dL (75-99)
[2016-06-20] MEDS: INSULIN DETEMIR 100 UNIT/ML 10 ML VIAL SQ SCH ×3 (07:50→21:26)
[2016-06-20] MEDS: INSULIN LISPRO (humaLOG) 300 UNIT/3 ML VIAL SQ SCH ×5 (07:50→21:26)
[2016-06-20] MEDS: PRAVASTATIN SODIUM 40 MG TAB PO SCH ×2 (07:53→21:26)
[2016-06-20] MEDS: SODIUM CHLORIDE 0.9% 1,000 ML IV SCH ×3 (07:54→22:54)
[2016-06-20 08:19] LABS: Appearance,Urine Clear (Clear); Bilirubin,Urine Negative (Negative); Glucose,Urine (UA) Negative (Negative); Ketones,Urine Negative (Negative); Leukocyte Esterase,Urine Negative (Negative); Nitrite,Urine Negative (Negative); PH, Urine 6.5 (5.0-8.0); Particle Count 266; Protein,Urine Trace (Negative); RBC,Urine 1 /hpf (0-5); Specific Gravity,Urine 1.005 (1.001-1.035); UA Billing (MACRO vs. MICRO) MICRO; Urobilinogen,Urine <2.0 mg/dL (<2.0); WBC,Urine <1 /hpf (0-5)
[2016-06-20] MEDS: PANTOPRAZOLE 40 MG TABLET PO SCH ×2 (08:37→17:10)
[2016-06-20] MEDS: LINAGLIPTIN 5 MG TABLET PO SCH (08:37)
[2016-06-20] MEDS: amLODIPine 10 MG TAB PO SCH (08:37)
[2016-06-20] MEDS: FERROUS SULFATE 325 MG TAB PO SCH (08:37)
[2016-06-20] MEDS: LOSARTAN 50 MG TAB PO SCH (08:37)
[2016-06-20] MEDS: POTASSIUM CHLORIDE ER 20 MEQ TAB.ER PO SCH (08:37)
[2016-06-20] MEDS: FUROSEMIDE 40 MG TAB PO SCH (08:37)
[2016-06-20] MEDS: MULTIVITAMINS, THERA 1 EACH TAB PO SCH (08:37)
[2016-06-20 11:57] LABS: CH 30.4; CHCM 33.5; HCT 25.6 % (39.0-53.0); HGB 8.5 gm/dL (13.0-17.5); MCH 30.2 pg (25.0-35.0); MCHC 33.1 g/dL (31.0-37.0); MCV 91.3 fL (80.0-100.0); Mean Platelet Volume 6.9; RDW 13.8 % (11.5-15.5); WBC 11.3 k/uL (3.8-10.6)
[2016-06-20 12:00] LABS: Potassium 4.2 mmol/L (3.5-5.1)
[2016-06-20 12:22] LABS: Glucose,Whole Blood 191 mg/dL (75-99)
[2016-06-20 13:00] LABS: Total Bilirubin 2.3 mg/dL (0.2-1.3); Total Protein 5.2 g/dL (6.3-8.2)
[2016-06-20 13:17] LABS: Nucleated Red Blood Cells 0 /100 WBC (0-0); Total Cells Counted 100
[2016-06-20 13:18] LABS: RBC Morphology Normal
--- NOTE | 2016-06-20 14:12 | XR ---
EXAMINATION TYPE: XR chest 1V DATE OF EXAM: 06/20/2016 2:00 PM COMPARISON: 05/11/2016 HISTORY: Fever TECHNIQUE: Single frontal view of the chest is obtained. FINDINGS: There is no heart failure nor confluent pneumonic infiltrate. Costophrenic angles are isabela r. There are no hilar masses. There are chest leads. IMPRESSION: No active cardiopulmonary disease. No change.
[2016-06-20 15:45] LABS: Glucose,Whole Blood 117 mg/dL (75-99)
[2016-06-20 17:23] LABS: Glucose,Whole Blood 126 mg/dL (75-99)
[2016-06-20] MEDS: LEVOFLOXACIN 500MG-D5W PMX 500 MG in DEXTROSE/WATER 1 100ML.BAG IVPB SCH (18:40)
--- NOTE | 2016-06-20 21:50 | PN ---
DATE OF SERVICE: June 20, 2016 REQUESTING PHYSICIAN: Dr. Wyatt. Patient is an 81-year-old pleasant white male admitted to the hospital with acute GI bleed. He did not have any further episodes of bleeding since being in the hospital. His Xarelto is on hold. He underwent a small-bowel capsule endoscopy and results are still pending at the time of this dictation. In the meantime, he had a fever last night with a T-max of 103. He was started on Levaquin by PCP. This morning he says he is feeling better. He denies any abdominal pain. No nausea, vomiting. No rectal bleeding. On physical examination, he appears comfortable, in no distress. Blood pressure 140/62, pulse rate 61, temperature 97. HEENT: Unremarkable. Conjunctivae pink. Sclerae anicteric. Oral cavity, no lesions. NECK: No JVD or lymph node enlargement. Chest was clear to auscultation. HEART: Regular rate and rhythm. ABDOMEN: Soft. Bowel sounds are positive. No organomegaly. EXTREMITIES: No pedal edema. SKIN: No rashes. NEURO: Alert and oriented x3. No focal deficits. No labs available from today IMPRESSION: 1. Acute gastrointestinal bleeding, presently resolved, status post small-bowel capsule endoscopy. Results are still pending. 2. Febrile illness. PCP to address the issue. RECOMMENDATIONS: 1. Advance to a heart-healthy diet. 2. Obtain CBC and CMP today. 3. Will review the small-bowel capsule endoscopy results and will follow with you closely. Thank you for this consultation.
--- NOTE | 2016-06-20 22:05 | PN ---
ADDENDUM DATE OF SERVICE: 06/20/2016 The patient is an 81-year-old pleasant white male admitted to the hospital with acute GI bleed. He underwent a small bowel capsule endoscopy yesterday and following are the results. 1. A 5 to 6 mm angiodysplasia in the distal jejunum with some fresh blood noted in the vicinity, which appears to be the source of bleeding. 2. The rest of the small bowel appeared normal. RECOMMENDATIONS: 1. Continue to hold his Xarelto for 1 to 2 weeks. 2. At this time small bowel enteroscopy may still not reach the area of abnormality, hence further testing is not recommended. 3. Start him on iron supplements twice daily.
[2016-06-20 22:14] LABS: Glucose,Whole Blood 154 mg/dL (75-99)
--- NOTE | 2016-06-21 07:09 | PN ---
DATE OF SERVICE: 06/20/2016 INTERVAL HISTORY: Mr. Cole is an 81-year-old male with known history of atrial fibrillation on anticoagulation with Xarelto and recent gastrointestinal bleeding with negative EGD, came to the hospital with dark colored stool and hemoglobin drop with symptomatic anemia. GI did capsule endoscopy which showed 5 to 6 mm angiodysplasia in the distal jejunum with some fresh blood noted in the vicinity, which appears to be the source of bleeding. The rest of the small bowel appears to be normal. Otherwise, Xarelto has continued to be on hold. Hemoglobin is fairly stable at 8.5 today. Patient denied any complaints of nausea, vomiting, abdominal pain. No acute overnight issues. No chest pain or short of breath. No leg swelling. All other complete review of systems negative except as above. CURRENT MEDICATIONS: Reviewed. PHYSICAL EXAMINATION: An 81-year-old man lying in bed comfortably, awake, alert and oriented x3, appears to be in no apparent distress. VITALS: Blood pressure is 128/62, pulse is 63, respirations 18, temperature afebrile, pulse ox 93% on room air. HEENT: Atraumatic, normocephalic. Neck is supple. No JVD. CVS: S1, S2 heard. No murmurs, no gallop, no rub. LUNGS: Bilateral air entry is present. No wheezing. No crackles. Nonlabored breathing. ABDOMEN: Soft, nontender. Bowel sounds are present. COTTON DISPATCHER: Awake, alert, oriented x3. No focal deficit. EXTREMITIES: No edema. Pulses palpable bilaterally. No clubbing or cyanosis. PSYCHIATRIC: Cooperative. LABORATORY DATA: Reviewed WBC 11.3, hemoglobin 8.5, platelets 177, sodium 138, potassium 4.2, chloride 107, bicarb is 28. BUN 11, creatinine 1.47, calcium 8.0, total bili is 2.3. AST is 213, ALT is 170. Alkaline phosphatase 185. Total protein 5.2. Albumin 2.8. IMPRESSION: 1. Acute gastrointestinal bleed due to angiodysplasia in the distal jejunum, status post capsule endoscopy. Hemoglobin is fairly stable now. 2. Acute blood loss anemia, symptomatic anemia secondary to gastrointestinal bleed. 3. Atrial fibrillation, anticoagulated on Xarelto, which has been held due to gastrointestinal bleed for the next 2 weeks as per Gastroenterology recommendations. 4. Fever. Septic work-up including chest x-ray and urinalysis is negative. 5. Elevated liver enzymes and hyperbilirubinemia. Will get ultrasound of the abdomen/liver. 6. History of coronary artery disease. 7. Chronic congestive heart failure and diastolic dysfunction. 8. Hypertension. 9. Deep venous thrombosis prophylaxis with sequential compression devices. Discussion and plan: The patient will be continued on Protonix and monitor H&H. Continue to hold the Xarelto and follow closely. Further recommendations based on clinical course. Will repeat liver enzymes tomorrow. GI is on board. Further recommendations based on the clinical course.
[2016-06-21 07:27] LABS: Glucose,Whole Blood 110 mg/dL (75-99)
[2016-06-21 08:17] VITALS: BP 130/57; PULSE 67; RESP 18; TEMP 96.9
[2016-06-21] MEDS: INSULIN LISPRO (humaLOG) 300 UNIT/3 ML VIAL SQ SCH ×2 (08:41→13:20)
[2016-06-21] MEDS: FUROSEMIDE 40 MG TAB PO SCH (08:44)
[2016-06-21] MEDS: SODIUM CHLORIDE 0.9% 1,000 ML IV SCH (08:44)
[2016-06-21] MEDS: amLODIPine 10 MG TAB PO SCH (08:44)
[2016-06-21] MEDS: LOSARTAN 50 MG TAB PO SCH (08:44)
[2016-06-21] MEDS: PANTOPRAZOLE 40 MG TABLET PO SCH (08:44)
[2016-06-21] MEDS: MULTIVITAMINS, THERA 1 EACH TAB PO SCH (08:44)
[2016-06-21] MEDS: POTASSIUM CHLORIDE ER 20 MEQ TAB.ER PO SCH (08:44)
[2016-06-21] MEDS: FERROUS SULFATE 325 MG TAB PO SCH (08:44)
[2016-06-21] MEDS: LINAGLIPTIN 5 MG TABLET PO SCH (08:45)
[2016-06-21] MEDS: INSULIN DETEMIR 100 UNIT/ML 10 ML VIAL SQ SCH (08:51)
--- NOTE | 2016-06-21 09:43 | US ---
EXAMINATION TYPE: US liver DATE OF EXAM: 06/21/2016 8:31 AM COMPARISON: NONE CLINICAL HISTORY: elevated Liver enzymes. EXAM MEASUREMENTS: Liver Length: 17.9 cm Gallbladder Wall: 0.7 cm CBD: 0.5 cm Right Kidney: 11.7 x 4.4 x 4.6 cm Pancreas: Obscured by bowel gas Liver: enlarged Gallbladder: mobile gallstones, thickened GB wall Evidence for sonographic Villagran's sign: no CBD: appears wnl Right Kidney: no evidence of hydronephrosis IMPRESSION: 1. Liver is homogeneous with no focal mass. However, there is evidence of hepatomegaly. 2. Cholelithiasis with gallbladder wall thickening correlate for cholecystitis.
[2016-06-21 09:48] LABS: Basophils % (A) 0 %; CH 30.2; Eosinophils # (A) 0.2 k/uL (0-0.7); Eosinophils % (A) 2 %; HCT 28.3 % (39.0-53.0); HDW 2.98; Hypochromasia Slight; Luc # (Auto) 0.15; Luc % (Auto) 2; Lymphocytes # (A) 0.8 k/uL (1.0-4.8); Lymphocytes % (A) 11 %; MCH 30.3 pg (25.0-35.0); MCHC 31.9 g/dL (31.0-37.0); Mean Platelet Volume 7.4; Monocytes # (A) 0.4 k/uL (0-1.0); Monocytes % (A) 5 %; Neutrophils # (A) 5.6 k/uL (1.3-7.7); Neutrophils % (A) 79 %; RBC 2.97 m/uL (4.30-5.90); RDW 14.1 % (11.5-15.5); WBC 7.1 k/uL (3.8-10.6); WBC (Perox) 7.01
[2016-06-21 10:43] LABS: Calcium 8.3 mg/dL (8.4-10.2); Potassium 3.7 mmol/L (3.5-5.1); Total Bilirubin 2.3 mg/dL (0.2-1.3)
[2016-06-21 11:47] LABS: Glucose,Whole Blood 156 mg/dL (75-99)
--- NOTE | 2016-06-21 16:44 | PN ---
DATE OF SERVICE: 06/19/2016 INTERVAL HISTORY: Mr. Cole is an 81 -year-old male admitted to the hospital with dark stools, initially presented to [facility] and was transferred to for possible capsule endoscopy. Patient had recent EGD showed no active bleeding source. The patient's hemoglobin dropped from 11.3 to 8.5, currently 8.5 now. Patient is undergoing capsule endoscopy today. Gastroenterology is following. The patient denied any complaints of chest pain or short of breath. No nausea or vomiting or abdominal pain. REVIEW OF SYSTEMS: GENITOURINARY: Negative. ENDOCRINE: Negative. PSYCHIATRIC: Negative. SKIN: negative. All other fourteen-point review of systems negative except above. CURRENT MEDICATIONS: Reviewed. PHYSICAL EXAMINATION: Revealed an 81-year-old male lying in bed comfortably, awake, alert and oriented times three. Appears to be in no apparent distress. VITAL SIGNS: Blood pressure is 122/57, pulse is 62, respirations 18, temperature afebrile, pulse ox ( ) % on room air. HEENT: Atraumatic, normocephalic. Neck is supple. No JVD. CVS: S1, S2 heard. No murmurs, no gallop. LUNGS: Bilateral air entry is present. No wheezing. No crackles. Nonlabored breathing. ABDOMEN: Soft, nontender. Bowel sounds present. CENTRAL NERVOUS SYSTEM: Awake, alert and oriented times three. No focal deficits. EXTREMITIES: No edema. Pulses palpable bilaterally. No clubbing or cyanosis. PSYCHIATRY: Cooperative. LABORATORY DATA: WBC 7.4, hemoglobin 9.0, platelets 223, sodium 144, potassium 4.1, chloride 110, bicarb is 29, BUN 11, creatinine 1.4. Calcium 8.8. C. dif toxin is negative. IMPRESSION: 1. Acute gastrointestinal bleed with recent esophagogastroduodenoscopy 4 weeks ago and negative for any bleeding source. Gastroenterology is planning for capsule endoscopy today. Hemoglobin is fairly stable. 2. Acute blood loss anemia/symptomatic anemia secondary to gastrointestinal bleed. 3. Atrial fibrillation anticoagulated on Xarelto which has been held at this time. 4. Congestive heart failure, chronic congestive heart failure with diastolic dysfunction. 5. History of coronary artery disease. 6. Type 2 diabetes mellitus, insulin-dependent, controlled. 7. Hypertension. 8. Deep venous thrombosis prophylaxis with SCDs. DISCUSSION AND PLAN: Patient will be continued on PPI and monitor H&H. Gastroenterology is planning for capsule endoscopy today. We will continue the current management and further recommendations based on clinical course. ALYCE
--- NOTE | 2016-06-23 17:16 | DS ---
DATE OF ADMISSION: 06/17/2016 DATE OF DISCHARGE: 06/21/2016 DISCHARGE DIAGNOSES: 1. Acute gastrointestinal bleed due to angiodysplasia in the distal jejunum, status post capsule endoscopy. Hemoglobin is stable now. 2. Acute blood loss anemia/symptomatic anemia secondary to gastrointestinal bleed. 3. Atrial fibrillation, on anticoagulants with Xarelto, which has been held. 4. Fevers, septic work-up has been negative. No need for antibiotics. 5. Elevated liver enzymes and hyperbilirubinemia trending down now. 6. Gallstones, suspected to have cholecystitis. Patient is asymptomatic. 7. History of coronary artery disease. 8. Chronic obstructive pulmonary disease. 9. Chronic congestive heart failure with diastolic dysfunction. 10. Hypertension. 11. Deep venous thrombosis prophylaxis with SCDs. HOSPITAL COURSE: Mr. Cole is an 81-year-old male with medical problems multiple as above admitted to the hospital with dark colored tarry stools and acute blood loss anemia. Patient had endoscopy that was negative and the patient underwent capsule endoscopy that showed angiodysplasia in the distant jejunum. Patient was advised to hold Xarelto for 2 weeks and follow with Dr. Patel as an outpatient. Patient also found to have ulcerative colitis and gallstones suspected cholecystitis. The patient is asymptomatic and recommended closely follow with GI as an outpatient. Fever has resolved. Septic work-up has been negative. Hemoglobin is stable. Patient will be discharged home in stable condition. DISCHARGE PHYSICAL EXAMINATION: Patient is an 81-year-old male lying in bed comfortably, awake, alert x3, appears to be in no apparent distress. VITALS: Blood pressure is 130/57, pulse is 67, respirations 18, temperature afebrile. Pulse ox 95% on room air. Laboratory data reviewed. Discharge physical examination done. Discharge medications include: 1. Aspirin 81 mg p.o. daily. 2. Vitamin D2 50,000 units p.o. q.30 days. 3. Ferrous sulfate 325 mg p.o. daily. 4. Lasix 40 mg p.o. daily. 5. Levemir 30 units subcutaneous b.i.d. 6. Multivitamins 1 tablet p.o. daily. 7. Potassium chloride 20 mEq p.o. daily. 8. Potassium gluconate 595 mg p.o. daily. 9. Pravastatin 40 mg p.o. q.h.s. 10. imdur 30 mg p.o. daily. 11. Omeprazole 40 mg daily with breakfast. 12. Losartan 50 mg p.o. daily. 13. Amlodipine 10 mg p.o. daily. Patient will be discharged home with activity as tolerated. Follow with Dr. Esa Giraldo on 06/30/2016 at 4:[address] Follow with Dr. Janene Martinez, primary care physician. Home with self-care. Activity as tolerated. MTDD
[2016-07-08] MEDS ORDERED: ERGOCALCIFEROL 50,000 UNIT CAP PO SCH (09:00)
== END 2016-06-21 14:43 | disposition home or self-care (01) | DRG 378 ==
LOC: 4MS4W 12:31
PROVIDERS: ADMIT Internal Medicine; ATTEND Internal Medicine
DX: K55.21 Angiodysplasia of colon with hemorrhage (principal); D62 Acute posthemorrhagic anemia; I13.0 Hypertensive heart and chronic kidney disease with heart failure and stage 1 through stage 4 chronic kidney disease, or unspecified chronic kidney disease; I50.32 Chronic diastolic (congestive) heart failure; E11.22 Type 2 diabetes mellitus with diabetic chronic kidney disease; I48.0 Paroxysmal atrial fibrillation; E78.5 Hyperlipidemia, unspecified; I25.10 Atherosclerotic heart disease of native coronary artery without angina pectoris; I25.2 Old myocardial infarction; N18.9 Chronic kidney disease, unspecified; Z79.01 Long term (current) use of anticoagulants; Z79.82 Long term (current) use of aspirin; Z79.899 Other long term (current) drug therapy; Z87.891 Personal history of nicotine dependence; Z82.49 Family history of ischemic heart disease and other diseases of the circulatory system
CPT/HCPCS: 71010; 76705; 80048; 80053; 81001; 82272; 83036; 85025; 85027; 87040; 87086; 87324; 91110

== ENCOUNTER → 2019-10-23 | Outpatient (CLI) | payer MEDICARE, BC ==
--- NOTE | 2019-10-23 14:47 | NM ---
EXAMINATION TYPE: NM pul vent and perfuse DATE OF EXAM: 10/23/2019 COMPARISON: Chest x-ray same date HISTORY: Shortness of breath TECHNIQUE: Utilizing inhalation of 36.6 mCi Tc 99m DTPA aerosol and intravenous injection of 5.2 mCi of Tc 99m MAA, ventilation and perfusion images are acquired post injection in multiple projections. FINDINGS: Near normal radiotracer distribution is noted in the lungs on perfusion images, ventilation images sh ow more patchy distribution. Subsegmental areas of decreased radio pharmaceutical uptake noted periph erally especially the apices. There is no evidence of mismatched defects. IMPRESSION: Low probability for pulmonary embolism
--- NOTE | 2019-10-23 15:42 | XR ---
EXAMINATION TYPE: XR chest 2V DATE OF EXAM: 10/23/2019 COMPARISON: Prior chest x-ray 06/20/2016 HISTORY: Redness of breath TECHNIQUE: Frontal and lateral views of the chest are obtained. FINDINGS: There is no focal air space opacity, pleural effusion, or pneumothorax seen. The cardiac silhouette size is within normal limits. There is a generator in left pectoral region, leads in the r ight atrium and ventricle. The aorta is dense. Lucency in the retrocardiac region could represent a h iatal hernia. The osseous structures are intact. IMPRESSION: No acute cardiopulmonary process.
== END | disposition home or self-care (01) ==
LOC: RADNMMAIN 12:00
PROVIDERS: ATTEND Family Medicine
DX: I50.32 Chronic diastolic (congestive) heart failure (principal); R06.2 Wheezing; T14.8XXA Other injury of unspecified body region, initial encounter
CPT/HCPCS: 71046; 78582; A9540; A9567